=== PATIENT | male | born 1945 | race Asian ===

== ENCOUNTER 2016-06-07 16:35 | Inpatient (IN) | payer OTHER ==
--- NOTE | 2016-06-07 16:47 | PDOC ---
History of Present Illness - General History Source: Patient Exam Limitations: No Limitations - History of Present Illness Initial Comments: 06/07/16 16:56 The patient is a 70 year old male with a significant past medical history of hypertension, hyperlipidemia, CAD, type II diabetes, presenting to the Emergency Department with fever, chills, cough, and body aches for 4 days. He reports seeing his PCP on June 05, and was prescribed Biaxin. He admits that his fever, chills, and symptoms improved since starting the antibiotics but admits that he still has a cough and symptoms. He admits that his cough started producing phlegm as of yesterday. He denies pain with coughing. He denies having a pneumonia vaccination. The patient denies nausea, vomiting, and diarrhea. Patient denies chest pain, palpitations, or diaphoresis. Patient denies dizziness, or blurry vision. Patient denies recent travel. Patient denies sick contact. PCP: Dr. Susannah Pelayo <Katherine Young - Last Filed: 06/07/16 17:21> <Jeremy Rick - Last Filed: 06/07/16 17:49> - General Chief Complaint: Respiratory Stated Complaint: COLD,FEVER,SOB Time Seen by Provider: 06/07/16 16:38 Past History <Katherine Young - Last Filed: 06/07/16 17:21> - Past Medical History Cardiac Disorders: Yes (4 STENTS, QUAD BYPASS) Diabetes: Yes - Surgical History Cardiac Surgery: Yes (STENTS, QUAD BYPASS) - Psycho/Social/Smoking Cessation Hx Anxiety: No Suicidal Ideation: No Smoking History: Never smoked Substance Use Type: None <Jeremy Rick - Last Filed: 06/07/16 17:49> - Past Medical History Allergies/Adverse Reactions: Allergies Allergy/AdvReac Type Severity Reaction Status Date / Time No Known Allergies Allergy Verified 06/07/16 16:55 Home Medications: Ambulatory Orders Amlodipine Besylate [Norvasc -] 2.5 mg PO DAILY 06/07/16 Aspirin [ASA -] 81 mg PO DAILY 06/07/16 B Complex with Vitamin C [Super B with Vit C] 1 each PO BID 06/07/16 Cholecalciferol (Vitamin D3) [Vitamin D3 -] 1,000 unit PO DAILY 06/07/16 Glipizide Xl [Glucotrol Xl -] 10 mg PO BID 06/07/16 Glucosamine HCl/Chondr Leija A Na [Osteo Bi-Flex Caplet] 1 each PO BID 06/07/16 Losartan 50Mg/Hctz 12.5MG [Hyzaar -] 1 tab PO DAILY 06/07/16 Metoprolol Succinate [Toprol Xl -] 75 mg PO HS 06/07/16 Multivits,Ca,Min/Iron/FA/Lycop [Centrum Men's Tablet] 1 each PO DAILY 06/07/16 Omeprazole 20 mg PO DAILY 06/07/16 Pioglitazone HCl [Actos] 30 mg PO HS 06/07/16 Prasugrel HCl [Effient] 10 mg PO DAILY 06/07/16 Pravastatin Sodium [Pravachol (Nf)] 20 mg PO HS 06/07/16 Ranolazine [Ranexa] 1,000 mg PO BID 06/07/16 Sitagliptin Phos/Metformin HCl [Janumet 50-1,000 mg Tablet] 1 each PO BID Tadalafil [Cialis] 5 mg PO HS 06/07/16 Ubidecarenone [Co Q-10] 100 mg PO BID 06/07/16 Review of Systems - Review of Systems Able to Perform ROS?: Yes Comments:: 06/07/16 16:57 CONSTITUTIONAL: Present: + fever, + chills, + body aches Absent: diaphoresis, generalized weakness, malaise, loss of appetite HEENT: Absent: rhinorrhea, nasal congestion, throat pain, throat swelling, difficulty swallowing, mouth swelling, ear pain, eye pain, visual Changes CARDIOVASCULAR: Absent: chest pain, syncope, palpitations, irregular heart rate, lightheadedness , peripheral edema RESPIRATORY: Present: + productive cough Absent: shortness of breath, dyspnea with exertion, orthopnea, wheezing, stridor , hemoptysis GASTROINTESTINAL: Absent: abdominal pain, abdominal distension, nausea, vomiting, diarrhea, constipation, melena, hematochezia GENITOURINARY: Absent: dysuria, frequency, urgency, hesitancy, hematuria, flank pain, genital pain MUSCULOSKELETAL: Absent: myalgia, arthralgia, joint swelling SKIN: Absent: rash, itching, pallor HEMATOLOGIC/IMMUNOLOGIC: Absent: easy bleeding, easy bruising, lymphadenopathy, frequent infections ENDOCRINE: Absent: unexplained weight gain, unexplained weight loss, heat intolerance, cold intolerance NEUROLOGIC: Absent: headache, focal weakness or paresthesias, dizziness, unsteady gait, seizure, mental status changes, bladder or bowel incontinence PSYCHIATRIC: Absent: anxiety, depression, suicidal or homicidal ideation, hallucinations. <Katherine Young - Last Filed: 06/07/16 17:21> *Physical Exam - Vital Signs Last Vital Signs Temp Pulse Resp BP Pulse Ox 98.5 F 102 H 24 135/82 99 06/07/16 16:44 06/07/16 16:44 06/07/16 16:44 06/07/16 16:44 06/07/16 16:44 - Physical Exam Comments: 06/07/16 16:57 GENERAL: Well developed, well nourished. Awake and alert. In no acute distress. HEENT: Normocephalic, atraumatic. PERRLA, EOMI. No conjunctival pallor. Sclera are non- icteric. Moist mucous membranes. Oropharynx is clear. NECK: Supple. Full ROM. No JVD. Carotid pulses 2+ and symmetric, without bruits. No thyromegaly. No lymphadenopathy. CARDIOVASCULAR: Tacchycardic rate with regular rythm. No murmurs, rubs, or gallops. Distal pulses are 2+ and symmetric. PULMONARY: Mild end expiratory wheezes bilaterally. Crackles at right lower lobe, and left upper lobe. No rales or rhonchi. ABDOMINAL: Soft. Non-tender. Non-distended. No rebound or guarding. No organomegaly. Normoactive bowel sounds. MUSCULOSKELETAL Normal range of motion at all joints. No bony deformities or tenderness. No CVA tenderness. EXTREMITIES: No cyanosis. No clubbing. No edema. No calf tenderness. SKIN: Warm and dry. Normal capillary refill. No rashes. No jaundice. NEUROLOGICAL: Alert, awake, appropriate. Cranial nerves 2-12 intact. No deficits to light touch and temperature in face, upper extremities and lower extremities. No motor deficits in the in face, upper extremities and lower extremities. Normoreflexic in the upper and lower extremities. Normal speech. Toes are downgoing bilaterally. Gait is normal without ataxia. PSYCHIATRIC: Cooperative. Good eye contact. Appropriate mood and affect. <Katherine Young - Last Filed: 06/07/16 17:21> ED Treatment Course - LABORATORY CBC & Chemistry Diagram: 06/07/16 17:06 06/07/16 17:06 <Katherine Young - Last Filed: 06/07/16 17:21> - LABORATORY CBC & Chemistry Diagram: 06/07/16 17:06 06/07/16 17:06 <Jeremy Rick - Last Filed: 06/07/16 17:49> Medical Decision Making - Medical Decision Making 06/07/16 16:53 The patient is well-appearing and in no acute distress He has to SIRS criteria: Heart rate greater than 90, respiratory rate greater than 20 He has right lower lobe crackles and symptoms of pneumonia He meets diagnostic criteria for sepsis Will initiate sepsis order set 06/07/16 17:14 Chest x-ray emergency Department interpretation: Left upper lobe infiltrate 06/07/16 17:30 EKG emergency Department interpretation: Normal sinus rhythm at 91, left axis deviation, left anterior hemiblock, right bundle-branch block, prolonged QTc, inverted T waves in V1 through V3, no ST changes Given that he is taking a macrolide as an outpatient, and continuing to be symptomatic, coupled with his prolonged QTc, will treat his community-acquired pneumonia with ceftriaxone and doxycycline 06/07/16 17:47 Labs noted including: Hyponatremia Elevated BUN/creatinine creatinine Mildly elevated glucose Laboratory Tests 06/07/16 17:06 Sodium 126 L BUN 19 H D Creatinine 1.4 H D Random Glucose 260 H D AST 42 D ALT 31 D We do not have a baseline creatinine, and the patient does not have a history of chronic kidney disease. I suspect that the elevated creatinine represents acute kidney injury. Hyponatremia is likely hypovolemic hyponatremia However, given that he has pneumonia, SIADH is also a possibility I added urinary antigens for Legionella, given the hyponatremia Of note he does not have diarrhea nor does he have a transaminitis Clinical impression: Community-acquired pneumonia Sepsis Hyponatremia Acute Kidney Injury Slightly prolonged QTC Case discussed in detail with admitting provider including history, physical exam and ancillary studies. Admitting physician has assumed care for the patient, will follow all pending diagnostics and will complete the evaluation and treatment. A portion of this note was documented by scribe services under my direction. I have reviewed the details of the note, within reason, and agree with the documentation with the following case summary and management plan written by me. 06/07/16 17:49 <Jeremy Rick - Last Filed: 06/07/16 17:49> *DC/Admit/Observation/Transfer - Attestations Scribe Attestion: 06/07/16 16:59 Documentation prepared by Katherine Young, acting as territory sales manager medical for Jeremy Rick MD. <Katherine Young - Last Filed: 06/07/16 17:21> - Discharge Dispostion Admit: Yes <Jeremy Rick - Last Filed: 06/07/16 17:49> Diagnosis at time of Disposition: Community acquired pneumonia, Sepsis - Discharge Dispostion Condition at time of disposition: Stable - Referrals Referrals: Milana Pelayo [Primary Care Provider] -
[2016-06-07] MEDS ORDERED: SODIUM CHLORIDE 1,000 ML IV STA (16:54)
[2016-06-07] MEDS ORDERED: AZITHROMYCIN IVPB 500 MG in DEXTROSE 5%-WATER - 250 ML IVPB ONE (16:55)
[2016-06-07] MEDS ORDERED: CEFTRIAXONE 1 GM in DEXTROSE 5%-WATER - 50 ML IVPB ONE (16:55)
[2016-06-07] MEDS ORDERED: ALBUTEROL SO4 2.5/IPRATROPIUM 0.5 INH SOL 3 ML VIAL.NEB. NEB ONE (16:55)
[2016-06-07 17:22] LABS: BASOPHIL 0.4 % (0-2.0); EOSINOPHIL 1.9 % (0-4.5); MCHC 35.3 g/dl (32.0-35.9); MEAN CELL VOLUME 90.5 fl (80-96); MEAN PLT VOLUME 7.9 fl (7.5-11.1); NEUTROPHILS 78.1 % (42.8-82.8); PLATELET COUNT 328 K/MM3 (134-434); RDW 11.8 % (11.9-15.9); WHITE BLOOD COUNT 8.5 K/mm3 (4.0-10.0)
[2016-06-07 17:32] LABS: ACTIVATED PTT 28.4 SECONDS (24.0-38.9)
[2016-06-07] MEDS ORDERED: DOXYCYCLINE INJECTION 100 MG in DEXTROSE 5%-WATER - 100 ML IVPB ONE (17:32)
[2016-06-07 17:33] LABS: ALBUMIN 3.1 g/dl (3.5-5.0); BILIRUBIN,TOTAL 0.8 mg/dl (0.2-1.0); CALCIUM 8.3 mg/dl (8.4-10.2); CREATININE 1.4 mg/dl (0.6-1.3); TOT PROT 7.1 g/dl (6.4-8.3)
[2016-06-07 17:36] LABS: INR 1.23 (0.82-1.09); PROTHROMBIN TIME (PATIENT) 13.7 SEC (10.2-13.0)
[2016-06-07 17:52] LABS: CPK(DFH) 135 IU/L (38-174)
[2016-06-07] MEDS ORDERED: DOXYCYCLINE HYCLATE 100 MG VIAL ONE (18:04)
[2016-06-07 18:11] LABS: TROPONIN I (DFP) < 0.03 ng/ml (0.03-0.50)
[2016-06-07 19:26] VITALS: BMI 28.0
--- NOTE | 2016-06-07 19:28 | HP ---
CHIEF COMPLAINT: Fever, Chills, Generalized Bodyaches PCP: Dr. Susannah Pelayo HISTORY OF PRESENT ILLNESS: This is a 70 y/o man with a past medical history of Hypertension, HLD, CAD ( Stents x4), Quad Bypass. Who presents to the emergency department with fever, chills and generalized bodyaches, dry cough x 4 days. Patient reports subjective fevers 100-101 at home. Patient was seen by his PCP placed on Biaxin . Patient reports feeling better on Thursday with decreased chills. Patient reports this morning having a productive cough with blood tinged phlegm. Patient reports having difficulty speaking in full sentences without becoming SOB. Patient denies recent travel or sick contacts. Patient denies dizziness, CP, AP, N/V/D, constipation. ER course was notable for: (1) Na 126 (2) Chest Xray- image consolidation to RML, LLL (3) Lactic Acid 2.4 Recent Travel: None PAST MEDICAL HISTORY: See HPI PAST SURGICAL HISTORY: See HPI Social History: Smoking: Former Alcohol: None Drugs: None Lives with spouse- Retired Family History: Mother: HTN, DM, CAD, Stroke () Father: (car accident) Allergies No Known Allergies Allergy (Verified 06/07/16 16:55) HOME MEDICATIONS: Home Medications Medication Instructions Recorded Amlodipine Besylate [Norvasc -] 2.5 mg PO DAILY 06/07/16 Aspirin [ASA -] 81 mg PO DAILY 06/07/16 B Complex with Vitamin C [Super B 1 each PO BID 06/07/16 with Vit C] Cholecalciferol (Vitamin D3) 1,000 unit PO DAILY 06/07/16 [Vitamin D3 -] Glipizide Xl [Glucotrol Xl -] 10 mg PO BID 06/07/16 Glucosamine HCl/Chondr Leija A Na 1 each PO BID 06/07/16 [Osteo Bi-Flex Caplet] Losartan 50Mg/Hctz 12.5MG [Hyzaar 1 tab PO DAILY 06/07/16 -] Metoprolol Succinate [Toprol Xl -] 75 mg PO HS 06/07/16 Multivits,Ca,Min/Iron/FA/Lycop 1 each PO DAILY 06/07/16 [Centrum Men's Tablet] Omeprazole 20 mg PO DAILY 06/07/16 Pioglitazone HCl [Actos] 30 mg PO HS 06/07/16 Prasugrel HCl [Effient] 10 mg PO DAILY 06/07/16 Pravastatin Sodium [Pravachol (Nf)] 20 mg PO HS 06/07/16 Ranolazine [Ranexa] 1,000 mg PO BID 06/07/16 Sitagliptin Phos/Metformin HCl 1 each PO BID 06/07/16 [Janumet 50-1,000 mg Tablet] Tadalafil [Cialis] 5 mg PO HS 06/07/16 Ubidecarenone [Co Q-10] 100 mg PO BID 06/07/16 REVIEW OF SYSTEMS CONSTITUTIONAL: fever, chills Absent: diaphoresis, generalized weakness, malaise, loss of appetite, weight change HEENT: Absent: rhinorrhea, nasal congestion, throat pain, throat swelling, difficulty swallowing, mouth swelling, ear pain, eye pain, visual changes CARDIOVASCULAR: Absent: chest pain, syncope, palpitations, irregular heart rate, lightheadedness , peripheral edema RESPIRATORY: cough, shortness of breath Absent: dyspnea with exertion, orthopnea, wheezing, stridor, hemoptysis GASTROINTESTINAL: Absent: abdominal pain, abdominal distension, nausea, vomiting, diarrhea, constipation, melena, hematochezia GENITOURINARY: Absent: dysuria, frequency, urgency, hesitancy, hematuria, flank pain, genital pain MUSCULOSKELETAL: Absent: myalgia, arthralgia, joint swelling, back pain, neck pain SKIN: Absent: rash, itching, pallor HEMATOLOGIC/IMMUNOLOGIC: Absent: easy bleeding, easy bruising, lymphadenopathy, frequent infections ENDOCRINE: Absent: unexplained weight gain, unexplained weight loss, heat intolerance, cold intolerance NEUROLOGIC: Absent: headache, focal weakness or paresthesias, dizziness, unsteady gait, seizure, mental status changes, bladder or bowel incontinence PSYCHIATRIC: Absent: anxiety, depression, suicidal or homicidal ideation, hallucinations. PHYSICAL EXAMINATION Vital Signs - 24 hr 06/07/16 06/07/16 18:56 19:26 Temperature 99 F Pulse Rate 89 Respiratory 18 Rate Blood Pressure 135/92 O2 Sat by Pulse 98 Oximetry (%) GENERAL: Awake, alert, and fully oriented, in no acute distress. HEAD: Normal with no signs of trauma. EYES: Pupils equal, round and reactive to light, extraocular movements intact, sclera anicteric, conjunctiva clear. No lid lag. EARS, NOSE, THROAT: Ears normal, nares patent, oropharynx clear without exudates. Dry mucous membranes. NECK: Normal range of motion, supple without lymphadenopathy, JVD, or masses. LUNGS: Breath sounds equal, clear to auscultation bilaterally. No wheezes, and no crackles. No accessory muscle use. HEART: Regular rate and rhythm, normal S1 and S2 without murmur, rub or gallop. ABDOMEN: Soft, nontender, not distended, normoactive bowel sounds, no guarding, no rebound, no masses. No hepatomegaly or splenomegaly. MUSCULOSKELETAL: Normal range of motion at all joints. No bony deformities or tenderness. No CVA tenderness. UPPER EXTREMITIES: 2+ pulses, warm, well-perfused. No cyanosis. No clubbing. Cap refill <2 seconds. No peripheral edema. LOWER EXTREMITIES: 2+ pulses, warm, well-perfused. No calf tenderness. No peripheral edema. NEUROLOGICAL: Cranial nerves II-XII intact. Normal speech. Gait not observed. PSYCHIATRIC: Cooperative. Good eye contact. Appropriate mood and affect. SKIN: Warm, dry, normal turgor, no rashes or lesions noted. Laboratory Results - last 24 hr 06/07/16 06/07/16 06/07/16 17:06 17:06 17:06 WBC 8.5 D RBC 3.87 L Hgb 12.4 Hct 35.0 L MCV 90.5 MCHC 35.3 RDW 11.8 L Plt Count 328 D MPV 7.9 Neutrophils % 78.1 Lymphocytes % 8.7 D Monocytes % 10.9 H Eosinophils % 1.9 Basophils % 0.4 INR 1.23 H PTT (Actin FS) 28.4 Sodium 126 L Potassium 3.7 Chloride 93 L Carbon Dioxide 22 Anion Gap 11 BUN 19 H D Creatinine 1.4 H D Creat Clearance w eGFR 49.82 Random Glucose 260 H D Lactic Acid Calcium 8.3 L Total Bilirubin 0.8 D AST 42 D ALT 31 D Alkaline Phosphatase 79 D Creatine Kinase Troponin I Total Protein 7.1 Albumin 3.1 L Urine Color Urine Appearance Urine pH Ur Specific [place] Urine Protein Urine Glucose (UA) Urine Ketones Urine Blood Urine Nitrite Urine Bilirubin Urine Urobilinogen Ur Leukocyte Esterase 06/07/16 06/07/16 06/07/16 17:06 17:30 19:44 WBC RBC Hgb Hct MCV MCHC RDW Plt Count MPV Neutrophils % Lymphocytes % Monocytes % Eosinophils % Basophils % INR PTT (Actin FS) Sodium Potassium Chloride Carbon Dioxide Anion Gap BUN Creatinine Creat Clearance w eGFR Random Glucose Lactic Acid 2.422 H* 2.895 H* Calcium Total Bilirubin AST ALT Alkaline Phosphatase Creatine Kinase 135 Troponin I < 0.03 L Total Protein Albumin Urine Color Urine Appearance Urine pH Ur Specific [place] Urine Protein Urine Glucose (UA) Urine Ketones Urine Blood Urine Nitrite Urine Bilirubin Urine Urobilinogen Ur Leukocyte Esterase 06/07/16 06/08/16 20:52 00:30 WBC RBC Hgb Hct MCV MCHC RDW Plt Count MPV Neutrophils % Lymphocytes % Monocytes % Eosinophils % Basophils % INR PTT (Actin FS) Sodium Potassium Chloride Carbon Dioxide Anion Gap BUN Creatinine Creat Clearance w eGFR Random Glucose Lactic Acid 1.074 Calcium Total Bilirubin AST ALT Alkaline Phosphatase Creatine Kinase Troponin I Total Protein Albumin Urine Color Yellow Urine Appearance Clear Urine pH 5.5 Ur Specific [place] 1.010 Urine Protein Negative Urine Glucose (UA) Negative Urine Ketones Negative Urine Blood Trace-intact Urine Nitrite Negative Urine Bilirubin Negative Urine Urobilinogen 1.0 e.u/dl Ur Leukocyte Esterase Negative ASSESSMENT/PLAN: This is a 70 y/o man with a PMHx of: HTN, HLD, DM, CAD( Stents x4), Quad Bypass. Presents to the ED with fever, chills, generalized body-aches. Admitted for Community Acquired Pneumonia, Sepsis, Hyponatremia for further evaluation of their emergent condition. Plan: 1. Community acquired pneumonia: - Failed Outpatient Therapy - CURB65 Score 1 - Blood Cultures-pending - Urine Legionella- pending - No leukocytosis, afebrile likely secondary to recent ABX use - Azithromycin, Ceftriaxone, Doxycycline given in ED - Will continue Doxycycline for broad spectrum coverage - Monitor CBC - O2 - Albuterol neb prn - Consider ID Consult if condition worsens 2. Sepsis: - Likely secondary to PNA - Lactic Acid 2.4~2.8 - NS bolus given in ED, NS bolus given x1 - Repeat Lactic Acid post fluid bolus - Hold Metformin - Continue gentle IVF concern for fluid overload 3. Lactic acidemia: - LA 2.4~2.8 - NS bolus given in ED - NS bolus x1 - Repeat LA-pending - Hold Metformin 4. Hyponatremia: - Likely hypovolemic hyponatremia - NS bolus given in ED - NA corrected 129-130 - Continue gentle IVF - Monitor BMP - Urine, Serum Osmality-pending 5. Diabetes mellitus: - Not controlled, likely secondary to infection - BGMs - ISS - Hold Metformin and Janumet secondary to LA 6. Hypertension: - Monitor BP - Continue home meds - Monitor renal function 7. Hyperlipidemia: - Continue home med 8. DVT Prophylaxis: - OOB - SCDs 9. FEN: - NS@50ml/hr - Repleted Na - Low Na, 1800 ADA Code Status: Full Code Problem List - Problem (1) Community acquired pneumonia Assessment/Plan: - Failed Outpatient Therapy - CURB65 Score 1 - Blood Cultures-pending - Urine Legionella- pending - No leukocytosis, afebrile likely secondary to recent ABX use - Azithromycin, Ceftriaxone, Doxycycline given in ED - Will continue Doxycycline for broad spectrum coverage - Monitor CBC - O2 - Albuterol neb prn - Consider ID Consult if condition worsens Code(s): J18.9 - PNEUMONIA, UNSPECIFIED ORGANISM (2) Sepsis Assessment/Plan: - Likely secondary to PNA - Lactic Acid 2.4~2.8 - NS bolus given in ED, NS bolus given x1 - Repeat Lactic Acid post fluid bolus - Hold Metformin - Continue gentle IVF concern for fluid overload Code(s): A41.9 - SEPSIS, UNSPECIFIED ORGANISM (3) Lactic acidemia Assessment/Plan: - LA 2.4~2.8 - NS bolus given in ED - NS bolus x1 - Repeat LA-pending - Hold Metformin Code(s): E87.2 - ACIDOSIS (4) Hyponatremia Assessment/Plan: - Likely hypovolemic hyponatremia - NS bolus given in ED - NA corrected 129-130 - Continue gentle IVF - Monitor BMP - Urine, Serum Osmality-pending Code(s): E87.1 - HYPO-OSMOLALITY AND HYPONATREMIA (5) Diabetes mellitus Assessment/Plan: - Not controlled, likely secondary to infection - BGMs - ISS - Hold Metformin and Janumet secondary to LA Code(s): E11.9 - TYPE 2 DIABETES MELLITUS WITHOUT COMPLICATIONS (6) HTN (hypertension) Assessment/Plan: - Monitor BP - Continue home meds - Monitor renal function Code(s): I10 - ESSENTIAL (PRIMARY) HYPERTENSION (7) HLD (hyperlipidemia) Assessment/Plan: - Continue home med Code(s): E78.5 - HYPERLIPIDEMIA, UNSPECIFIED (8) DVT prophylaxis Assessment/Plan: - OOB - SCDs Code(s): [id number] - Visit type - Emergency Visit Emergency Visit: Yes ED Registration Date: 06/07/16 Care time: The patient presented to the Emergency Department on the above date and was hospitalized for further evaluation of their emergent condition. - New Patient This patient is new to me today: Yes Date on this admission: 06/07/16 - Critical Care Critical Care patient: No
[2016-06-07 21:02] LABS: PH,URINE 5.5 (4.5-8); URINE APPEARANCE Clear; URINE BILIRUBIN Negative (NEGATIVE); URINE BLOOD Trace-intact (NEGATIVE); URINE GLUCOSE (UA) Negative (NEGATIVE); URINE KETONE Negative (NEGATIVE); URINE LEUK ESTERASE Negative (NEGATIVE); URINE NITRITE Negative (NEGATIVE); URINE PROTEIN Negative (NEGATIVE); URINE UROBILINOGEN 1.0 E.U/dl (0.2-1.0)
[2016-06-07 21:05] LABS: URINE COLOR YELLOW
[2016-06-07] MEDS ORDERED: SODIUM CHLORIDE 500 ML IV STA (22:05)
[2016-06-08] MEDS ORDERED: ALBUTEROL SO4 0.083% IH SOL 2.5 MG/3 ML VIAL.NEB. NEB PRN (00:55)
[2016-06-08] MEDS: SODIUM CHLORIDE 1,000 ML IV SCH (06:39)
--- NOTE | 2016-06-08 08:21 | PN ---
[id number] today." OBJECTIVE: Hospital day #2 for this 70 year old male with a history of HTN, HLD , and CAD s/p CABG admitted with community-acquired, failed outpatient Biaxin. Lactic acid cleared with IVF administration. Hyponatremia improved. Vital Signs Period Temp Pulse Resp BP Sys/Alcaraz Pulse Ox Last 24 Hr 98.2 F-99 F 89-95 17-19 122-146/57-92 97-98 GENERAL: The patient is awake, alert, and fully oriented, in no acute distress. HEAD: Normal with no signs of trauma. EYES: PERRL, extraocular movements intact, sclera anicteric, conjunctiva clear. No ptosis. ENT: Ears normal, nares patent, oropharynx clear without exudates, moist mucous membranes. NECK: Trachea midline, full range of motion, supple. LUNGS: Breath sounds equal, clear to auscultation bilaterally, no wheezes, no crackles, no accessory muscle use. Mild tachypnea. HEART: Regular rate and rhythm, S1, S2 without murmur, rub or gallop. ABDOMEN: Soft, nontender, nondistended, normoactive bowel sounds, no guarding, no rebound, no hepatosplenomegaly, no masses. EXTREMITIES: 2+ pulses, warm, well-perfused, no edema. NEUROLOGICAL: Cranial nerves II through XII grossly intact. Normal speech, gait not observed. PSYCH: Normal mood, normal affect. SKIN: Warm, moist. Laboratory Results - last 24 hr 06/07/16 06/07/16 06/08/16 19:44 20:52 00:30 Lactic Acid 2.895 H* 1.074 Urine Color Yellow Urine Appearance Clear Urine pH 5.5 Ur Specific [place] 1.010 Urine Protein Negative Urine Glucose (UA) Negative Urine Ketones Negative Urine Blood Trace-intact Urine Nitrite Negative Urine Bilirubin Negative Urine Urobilinogen 1.0 e.u/dl Ur Leukocyte Esterase Negative Active Medications Generic Name Dose Route Start Last Admin Trade Name Freq PRN Reason Stop Dose Admin Acetaminophen 650 mg 06/07/16 23:22 Tylenol - PO Q6H PRN FEVER OR PAIN Albuterol Sulfate 1 amp 06/08/16 00:55 Ventolin 0.083% Nebulizer Soln - NEB Q6H PRN SHORT OF BREATH/WHEEZING Amlodipine Besylate 2.5 mg 06/08/16 10:00 Norvasc - PO DAILY MARYANN Aspirin 81 mg 06/08/16 10:00 Asa - PO DAILY MARYANN Cholecalciferol 1,000 unit 06/08/16 10:00 Vitamin D3 - PO BID MARYANN HCTZ/Losartan Potassium 1 tab 06/08/16 10:00 Hyzaar - PO DAILY MARYANN Doxycycline Hyclate 100 mg/ 100 mls @ 100 mls/hr 06/08/16 10:00 Dextrose IVPB BID MARYANN Sodium Chloride 1,000 mls @ 50 mls/hr 06/08/16 06:30 06/08/16 06:39 Normal Saline - IV 50 mls/hr ASDIR MARYANN Administration Metoprolol Succinate 75 mg 06/08/16 22:00 Toprol Xl - PO HS MARYANN Non-Formulary Medication 1 each 06/08/16 10:00 B Complex With Vitamin C [Super B With Vit C] PO BID MARYANN Non-Formulary Medication 20 mg 06/08/16 10:00 Omeprazole PO DAILY MARYANN Prasugrel 10 mg 06/08/16 10:00 Effient - PO DAILY [facility] ASSESSMENT/PLAN: 70 year old male admitted with DAWSON, failed outpatient therapy. 1. Community acquired pneumonia -Started on doxycycline and improving; will continue this -Patient reports one episode of hemoptysis prior to admission and has DAWSON consolidation; TB is a consideration. Last visit to [facility] 3.5yrs ago. Denies nightsweats/weight loss. Received bcg vaccine as a child. Will obtain CT Chest to better characterize consolidation and will send Quantiferon Gold. Will consult ID for further recommendations. 2. DM -Hold oral hypoglycemics while inpatient -ISS -FSACHS -Diabetic diet 3. Hyponatremia -Likely secondary to fever/rigors at home -Improved with IVF administration -Hold HCTZ 4. HTN -Continue Losartan, Toprol -Hold HCTZ for now 5. Dyslipidemia -Continue Lipitor 6. CAD -Continue Ranexa, Effient DISPO: Requires continued inpatient care for IV antibiotics. Code Status: Full Code Visit type - Emergency Visit Emergency Visit: Yes ED Registration Date: 06/07/16 Care time: The patient presented to the Emergency Department on the above date and was hospitalized for further evaluation of their emergent condition. - New Patient This patient is new to me today: Yes Date on this admission: 06/07/16 - Critical Care Critical Care patient: No
[2016-06-08 09:34] LABS: BASOPHIL 0.2 % (0-2.0); EOSINOPHIL 3.3 % (0-4.5); MCH 30.9 pg (25.7-33.7); MCHC 33.5 g/dl (32.0-35.9); MEAN CELL VOLUME 92.2 fl (80-96); MEAN PLT VOLUME 8.1 fl (7.5-11.1); NEUTROPHILS 78.9 % (42.8-82.8); PLATELET COUNT 396 K/MM3 (134-434); RDW 12.3 % (11.9-15.9); WHITE BLOOD COUNT 7.3 K/mm3 (4.0-10.0)
[2016-06-08 09:42] LABS: CALCIUM 8.5 mg/dl (8.4-10.2)
[2016-06-08] MEDS ORDERED: LOSARTAN 50MG/HCTZ 12.5MG 1 TAB (FP) PO SCH (10:00)
[2016-06-08] MEDS: RANOLAZINE E.R. 500 MG TABLET (FP) PO SCH ×2 (10:26→22:12)
[2016-06-08] MEDS: ASPIRIN 81 MG CHEWABLE TABLETS PO SCH (10:26)
[2016-06-08] MEDS: CHOLECALCIFEROL (VITAMIN D3) 1,000 UNIT TABLET (FP) PO SCH ×2 (10:27→22:12)
[2016-06-08] MEDS: PANTOPRAZOLE 20 MG TABLET (FP) PO SCH (10:27)
[2016-06-08] MEDS: amLODIPine BESYLATE 2.5 MG TABLET (FP) PO SCH (10:27)
[2016-06-08] MEDS ORDERED: METOPROLOL SUCCINATE 25 MG TAB.SR.24H (FP) ONE (10:31)
[2016-06-08] MEDS: ACETAMINOPHEN 325 MG TABLET (FP) PO PRN (10:32)
[2016-06-08] MEDS ORDERED: METOPROLOL SUCCINATE 50 MG TAB.SR.24H (FP) ONE (10:32)
[2016-06-08] MEDS: DOXYCYCLINE INJECTION 100 MG in DEXTROSE 5%-WATER - 100 ML IVPB SCH ×2 (11:52→22:11)
[2016-06-08] MEDS: PRASUGREL HCL 10 MG TAB PO SCH (11:53)
[2016-06-08] MEDS: INSULIN SLIDING SCALE (NOVOLOG) 1 VIAL SQ SCH ×3 (15:17→22:12)
[2016-06-08] MEDS ORDERED: PT OWN MED DRAWER 7, Y5N ONE (21:29)
[2016-06-08] MEDS ORDERED: REFRIGERATED ANITBIOTICS ONE (21:29)
[2016-06-08] MEDS ORDERED: METOPROLOL SUCCINATE 50 MG TAB.SR.24H (FP) PO SCH (22:00)
[2016-06-08] MEDS: ATORVASTATIN CA 10 MG TABLET (FP) PO SCH (22:12)
--- NOTE | 2016-06-08 22:21 | EKG ---
Test Reason : Blood Pressure : / mmHG Vent. Rate : 091 BPM Atrial Rate : 091 BPM P-R Int : 172 ms QRS Dur : 146 ms QT Int : 414 ms P-R-T Axes : 029 -31 019 degrees QTc Int : 509 ms NORMAL SINUS RHYTHM LEFT AXIS DEVIATION RIGHT BUNDLE BRANCH BLOCK ABNORMAL ECG NO PREVIOUS ECGS AVAILABLE Confirmed by RAZA TAM, LAKISHA ([id number]) on 06/08/2016 10:20:54 PM Referred By: LESLI WASSERMAN Confirmed By:LAKISHA PERSON MD
[2016-06-09] MEDS: INSULIN SLIDING SCALE (NOVOLOG) 1 VIAL SQ SCH ×4 (06:25→22:54)
--- NOTE | 2016-06-09 08:20 | PN ---
Physical Exam: SUBJECTIVE: Patient seen and examined, reports ongoing cough with intermittent episodes of shortness of breath. OBJECTIVE: patient is a 70 year old male with a history of HTN, HLD, and CAD s/ p CABG. patient was admitted from the emergency department for community acquired pneumonia after failing outpatient therapy. Vital Signs Period Temp Pulse Resp BP Sys/Alcaraz Pulse Ox Last 24 Hr 98.0 F-99.3 F 90-92 18-19 112-147/61-71 97-100 GENERAL: The patient is awake, alert, and fully oriented, in no acute distress. HEAD: Normal with no signs of trauma. EYES: PERRL, extraocular movements intact, sclera anicteric, conjunctiva clear. No ptosis. ENT: Ears normal, nares patent, oropharynx clear without exudates, moist mucous membranes. NECK: Trachea midline, full range of motion, supple. LUNGS: Breath sounds equal, crackles noted to the left upper lobe, with a mild inspiratory wheeze, clear to right apex and base, RR 22, no accessory muscle use. HEART: Regular rate and rhythm, S1, S2, 2/6 systolic murmur, rub or gallop. ABDOMEN: Soft, nontender, nondistended, normoactive bowel sounds, no guarding, no rebound, no hepatosplenomegaly, no masses. EXTREMITIES: 2+ pulses, warm, well-perfused, no edema. NEUROLOGICAL: Cranial nerves II through XII grossly intact. Normal speech, gait not observed. PSYCH: Normal mood, normal affect. SKIN: Warm, dry, normal turgor, no rashes or lesions noted Laboratory Results - last 24 hr 06/08/16 06/08/16 06/08/16 07:00 07:00 07:00 WBC 7.3 RBC 3.92 L Hgb 12.1 Hct 36.1 MCV 92.2 MCHC 33.5 RDW 12.3 Plt Count 396 D MPV 8.1 Neutrophils % 78.9 Lymphocytes % 10.1 Monocytes % 7.5 Eosinophils % 3.3 Basophils % 0.2 Sodium 132 L Potassium 3.5 Chloride 98 Carbon Dioxide 25 Anion Gap 9 BUN 10 D Creatinine 1.0 D POC Glucometer Random Glucose 127 H D Serum Osmolality 276 L Calcium 8.5 06/08/16 06/08/16 06/09/16 15:07 22:18 06:21 WBC RBC Hgb Hct MCV MCHC RDW Plt Count MPV Neutrophils % Lymphocytes % Monocytes % Eosinophils % Basophils % Sodium Potassium Chloride Carbon Dioxide Anion Gap BUN Creatinine POC Glucometer 211 240 172 Random Glucose Serum Osmolality Calcium Active Medications Generic Name Dose Route Start Last Admin Trade Name Freq PRN Reason Stop Dose Admin Acetaminophen 650 mg 06/07/16 23:22 06/08/16 10:32 Tylenol - PO 650 mg Q6H PRN Administration FEVER OR PAIN Albuterol Sulfate 1 amp 06/08/16 00:55 06/08/16 10:47 Ventolin 0.083% Nebulizer Soln - NEB 1 amp Q6H PRN Administration SHORT OF BREATH/WHEEZING Amlodipine Besylate 2.5 mg 06/08/16 10:00 06/08/16 10:27 Norvasc - PO 2.5 mg DAILY MARYANN Administration Aspirin 81 mg 06/08/16 10:00 06/08/16 10:26 Asa - PO 81 mg DAILY MARYANN Administration Atorvastatin Calcium 10 mg 06/08/16 22:00 06/08/16 22:12 Lipitor - PO 10 mg HS MARYANN Administration Cholecalciferol 1,000 unit 06/08/16 10:00 06/08/16 22:12 Vitamin D3 - PO 1,000 unit BID MARYANN Administration Doxycycline Hyclate 100 mg/ 100 mls @ 100 mls/hr 06/08/16 10:00 06/08/16 22:11 Dextrose IVPB 100 mls/hr BID MARYANN Administration Sodium Chloride 1,000 mls @ 50 mls/hr 06/08/16 06:30 06/08/16 06:39 Normal Saline - IV 50 mls/hr ASDIR MARYANN Administration Insulin Aspart 1 vial 06/08/16 11:00 06/09/16 06:25 Novolog Vial Sliding Scale - SQ 2 unit ACHS MARYANN Administration Protocol Losartan Potassium 50 mg 06/09/16 10:00 Cozaar - PO DAILY MARYANN Metoprolol Succinate 75 mg 06/09/16 10:00 Toprol Xl - PO DAILY MARYANN Non-Formulary Medication 1 each 06/08/16 10:00 B Complex With Vitamin C [Super B With Vit C] PO BID MARYANN Pantoprazole Sodium 20 mg 06/08/16 10:00 06/08/16 10:27 Protonix - PO 20 mg DAILY MARYANN Administration Prasugrel 10 mg 06/08/16 10:00 06/08/16 11:53 Effient - PO 10 mg DAILY MARYANN Administration Ranolazine 1,000 mg 06/08/16 10:00 06/08/16 22:12 Ranexa - PO 1,000 mg BID MARYANN Administration Microbiology 06/07/16 20:52 Urine - Urine Clean Catch Urine Culture - Final NO GROWTH OBTAINED 06/07/16 17:06 Blood - Peripheral Venous Blood Culture - Preliminary NO GROWTH OBTAINED AFTER 24 HOURS, INCUBATION TO CONTINUE FOR 4 DAYS. 06/07/16 17:06 Blood - Peripheral Venous Blood Culture - Preliminary NO GROWTH OBTAINED AFTER 24 HOURS, INCUBATION TO CONTINUE FOR 4 DAYS. 06/07/16 20:52 Urine For Antigen Detection Streptococcus pneumoniae Antigen (M - Final 06/07/16 17:40 Nasopharyngeal Swab Influenza Types A,B Antigen (LAINA) - Final , negative ASSESSMENT/PLAN: 1. pulm Community acquired pneumonia - doxycline (06/07-06/08) start zithromax and rocephin as per ID (Jeremy) - pending CT scan of chest, pt reports one episode of hemoptysis prior to admission, last visit [facility] 3.5 years ago, left upper lobe infiltrate noted strong suspicion for tuberculosis pending quanterferion gold, AFB sent. -Patient reports one episode of hemoptysis prior to admission and has DAWSON consolidation; TB is a consideration. Last visit to [facility] 3.5yrs ago, pending quanterferon gold, panding afb, appreciate ID input (Jeremy). 2) endo niddm - continue to hold oral hypoglycemics while inpatient -ISS -FSACHS 3) card htn -Continue Losartan, Toprol, hold hctz due to hyponatremia cad -Continue Ranexa, Effient hyperlipidemia -Continue Lipitor f/e/n hyponatremia - Basically secondary to dehydration serum sodium trending upward with gentle IV fluids - Repeat BMP in a.m. - regular diet DISPO: Requires continued inpatient care for IV antibiotics, transfer [facility] for negative pressure hospital room. Code Status: Full Code Visit type - Emergency Visit Emergency Visit: Yes ED Registration Date: 06/07/16 Care time: The patient presented to the Emergency Department on the above date and was hospitalized for further evaluation of their emergent condition. - New Patient This patient is new to me today: Yes Date on this admission: 06/09/16 - Critical Care Critical Care patient: No - Discharge Referral Referred to [facility] No
[2016-06-09 08:46] LABS: BASOPHIL 0.7 % (0-2.0); EOSINOPHIL 3.5 % (0-4.5); MCH 30.8 pg (25.7-33.7); MCHC 33.4 g/dl (32.0-35.9); MEAN CELL VOLUME 92.3 fl (80-96); MEAN PLT VOLUME 7.8 fl (7.5-11.1); NEUTROPHILS 73.6 % (42.8-82.8); PLATELET COUNT 413 K/MM3 (134-434); RDW 11.7 % (11.9-15.9); WHITE BLOOD COUNT 6.1 K/mm3 (4.0-10.0)
[2016-06-09] MEDS: ALBUTEROL SO4 2.5/IPRATROPIUM 0.5 INH SOL 3 ML VIAL.NEB. NEB SCH ×4 (08:58→23:25)
[2016-06-09 09:04] LABS: INR 1.21 (0.82-1.09); PROTHROMBIN TIME (PATIENT) 13.5 SEC (10.2-13.0)
[2016-06-09 09:10] LABS: ALK PHOS 77 U/L (32-92); ANION GAP 8 (8-16); BILIRUBIN,TOTAL 0.8 mg/dl (0.2-1.0); CALCIUM 8.8 mg/dl (8.4-10.2); CO2 27 mmol/L (22-28); CREATININE 0.8 mg/dl (0.6-1.3); GLUCOSE,RANDOM 213 mg/dl (74-106); SGOT/AST 29 U/L (10-42); SGPT/ALT 39 U/L (10-40)
--- NOTE | 2016-06-09 09:40 | PN ---
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 adrenal involvement) AFB isolation Sputum AFB Quantiferon Sputum C/s, legionella/ pneumococcal ag Empiric ceftriaxone/ zithromax
[2016-06-09] MEDS ORDERED: METOPROLOL SUCCINATE 50 MG TAB.SR.24H (FP) PO SCH (10:00)
[2016-06-09] MEDS: AZITHROMYCIN IVPB 250 ML IVPB SCH (10:17)
[2016-06-09] MEDS: CEFTRIAXONE 100 ML IVPB SCH (10:17)
[2016-06-09] MEDS: ASPIRIN 81 MG CHEWABLE TABLETS PO SCH (10:18)
[2016-06-09] MEDS: LOSARTAN POTASSIUM 50 MG TABLET (FP) PO SCH (10:18)
[2016-06-09] MEDS: CHOLECALCIFEROL (VITAMIN D3) 1,000 UNIT TABLET (FP) PO SCH ×2 (10:18→22:54)
[2016-06-09] MEDS: amLODIPine BESYLATE 2.5 MG TABLET (FP) PO SCH (10:18)
[2016-06-09] MEDS: RANOLAZINE E.R. 500 MG TABLET (FP) PO SCH ×2 (10:18→22:54)
[2016-06-09] MEDS: PANTOPRAZOLE 20 MG TABLET (FP) PO SCH (10:18)
[2016-06-09] MEDS: SODIUM CHLORIDE 1,000 ML IV SCH ×2 (10:19→16:52)
[2016-06-09] MEDS ORDERED: INSULIN (NOVOLOG) ASPART 100 UNITS/ML 10ML VIAL ONE (12:10)
[2016-06-09] MEDS: PRASUGREL HCL 10 MG TAB PO SCH (13:07)
--- NOTE | 2016-06-09 15:45 | PN ---
Teaching Attending Note Name of Resident: Stefany Walker ATTENDING PHYSICIAN STATEMENT I saw and evaluated the patient. I reviewed the resident's note and discussed the case with the resident. I agree with the resident's findings and plan as documented. SUBJECTIVE: In brief. 70 M, Hypertension, HLD, CAD (Stents x4), and CABG x 4. Cough, SOB , fever, chills and generalized bodyaches since last Thursday. Does report thick mucous production that was blood streaked. No previous TB exposure or contact. CT chest: DAWSON nodular infiltrates / no cavitary lesions / mildly enlarged mediastinal LN OBJECTIVE: Intake & Output 06/06/16 06/07/16 06/08/16 06/09/16 23:59 23:59 23:59 23:59 Intake Total 800 825 Output Total 300 350 Balance -300 450 825 Weight 190 lb Last Vital Signs Temp Pulse Resp BP Pulse Ox 98.0 F 92 H 19 161/79 100 06/09/16 08:00 06/09/16 08:00 06/09/16 09:00 06/09/16 08:00 06/09/16 09:00 Active Medications Acetaminophen (Tylenol -) 650 mg PO Q6H PRN PRN Reason: FEVER OR PAIN Last Admin: 06/08/16 10:32 Dose: 650 mg Albuterol/Ipratropium (Duoneb -) 1 amp NEB QIDR [facility] Last Admin: 06/09/16 12:43 Dose: 1 amp Amlodipine Besylate (Norvasc -) 2.5 mg PO DAILY [facility] Last Admin: 06/09/16 10:18 Dose: 2.5 mg Aspirin (Asa -) 81 mg PO DAILY [facility] Last Admin: 06/09/16 10:18 Dose: 81 mg Atorvastatin Calcium (Lipitor -) 10 mg PO HS [facility] Last Admin: 06/08/16 22:12 Dose: 10 mg Cholecalciferol (Vitamin D3 -) 1,000 unit PO BID [facility] Last Admin: 06/09/16 10:18 Dose: 1,000 unit Sodium Chloride (Normal Saline -) 1,000 mls @ 50 mls/hr IV ASDIR [facility] Last Admin: 06/09/16 10:19 Dose: 50 mls/hr Ceftriaxone Sodium (Rocephin 2gm Ivpb (Pre-Docked)) 100 mls @ 200 mls/hr IVPB DAILY [facility] Last Admin: 06/09/16 10:17 Dose: 200 mls/hr Azithromycin (Zithromax 500mg Ivpb (Pre-Docked)) 250 mls @ 250 mls/hr IVPB DAILY [facility] Last Admin: 06/09/16 10:17 Dose: 250 mls/hr Insulin Aspart (Novolog Vial Sliding Scale -) 1 vial SQ ACHS [facility] PRN Reason: Protocol Last Admin: 06/09/16 12:12 Dose: 6 unit Losartan Potassium (Cozaar -) 50 mg PO DAILY [facility] Last Admin: 06/09/16 10:18 Dose: 50 mg Metoprolol Succinate 50 mg/ (Metoprolol Succinate 25 mg) 75 mg PO DAILY [facility] Prasugrel (Effient -) 10 mg PO DAILY [facility] Last Admin: 06/09/16 13:07 Dose: 10 mg Ranitidine HCl (Zantac -) 150 mg PO DAILY [facility] Ranolazine (Ranexa -) 1,000 mg PO BID [facility] Last Admin: 06/09/16 10:18 Dose: 1,000 mg GENERAL: NAD HEAD: Normal with no signs of trauma. EYES: Pupils equal, round and reactive to light, extraocular movements intact, sclera anicteric, conjunctiva clear. No lid lag. EARS, NOSE, THROAT: Ears normal, nares patent, oropharynx clear without exudates. NECK: Normal range of motion, supple without lymphadenopathy, JVD, or masses. LUNGS: Scattered rhonchi. No wheeze. No accessory muscle use. HEART: Regular rate and rhythm, normal S1 and S2 without murmur, rub or gallop. ABDOMEN: Soft, nontender, not distended, normoactive bowel sounds, no guarding, no rebound, no masses. No hepatomegaly or splenomegaly. MUSCULOSKELETAL: Normal range of motion at all joints. No bony deformities or tenderness. No CVA tenderness. UPPER EXTREMITIES: 2+ pulses, warm, well-perfused. No cyanosis. No clubbing. Cap refill <2 seconds. No peripheral edema. LOWER EXTREMITIES: 2+ pulses, warm, well-perfused. No calf tenderness. No peripheral edema. NEUROLOGICAL: non-focal PSYCHIATRIC: Cooperative. Good eye contact. Appropriate mood and affect. SKIN: Warm, dry, normal turgor, no rashes or lesions noted. Laboratory Results - last 24 hr 03/08/2006/09/16 06/09/16 22:18 06:21 07:50 WBC 6.1 RBC 3.79 L Hgb 11.7 Hct 35.0 L MCV 92.3 MCHC 33.4 RDW 11.7 L Plt Count 413 MPV 7.8 Neutrophils % 73.6 Lymphocytes % 13.0 D Monocytes % 9.2 Eosinophils % 3.5 Basophils % 0.7 D INR Sodium Potassium Chloride Carbon Dioxide Anion Gap BUN Creatinine Creat Clearance w eGFR POC Glucometer 240 172 Random Glucose Calcium Total Bilirubin AST ALT Alkaline Phosphatase C-Reactive Protein Total Protein Albumin Urine Osmolality 06/09/16 06/09/16 06/09/16 07:50 07:50 08:00 WBC RBC Hgb Hct MCV MCHC RDW Plt Count MPV Neutrophils % Lymphocytes % Monocytes % Eosinophils % Basophils % INR 1.21 Sodium 135 L Potassium 3.8 Chloride 100 Carbon Dioxide 27 Anion Gap 8 BUN 7 D Creatinine 0.8 Creat Clearance w eGFR > 60 POC Glucometer Random Glucose 213 H D Calcium 8.8 Total Bilirubin 0.8 AST 29 D ALT 39 D Alkaline Phosphatase 77 C-Reactive Protein Total Protein 7.0 Albumin 3.0 L Urine Osmolality 308 06/09/16 06/09/16 12:08 Unknown WBC RBC Hgb Hct MCV MCHC RDW Plt Count MPV Neutrophils % Lymphocytes % Monocytes % Eosinophils % Basophils % INR Sodium Potassium Chloride Carbon Dioxide Anion Gap BUN Creatinine Creat Clearance w eGFR POC Glucometer 294 Random Glucose Calcium Total Bilirubin AST ALT Alkaline Phosphatase C-Reactive Protein 8.3 H Total Protein Albumin Urine Osmolality ASSESSMENT AND PLAN: DAWSON CAP DM HTN HPL CAD PLAN: ABX per ID Check sputum AFB Noted Quantiferon Gold is ordered O2 as needed Daily Medrol Isolation Will need follow up imaging in 4 to 6 weeks Will follow Thank you. Dr Cornejo
--- NOTE | 2016-06-09 16:23 | CONSULT ---
Consultation: REQUESTING PROVIDER: CONSULT REQUEST: We have been asked to medically evaluate this patient for sob, cough, rigors. HISTORY OF PRESENT ILLNESS: This is a 70 yo M with PMH of HTN, HLD, CAD s/p stents and CABG, who presents due to cough x 4 days. Patient states that he also has been having subjective fevers. He has associated myalgia, rigots, night sweats, and right before admission some mild hemoptysis. Patient used to smoke cigars but not cigarettes , He is From [place] and has had Tb vaccine. He has not been in contact with any people infected wit TB as far as he knows. He is on anticoagulation for his stents. he has never had PNA before. He denies history of immunosupression. He currently feels better, afebrile and hemodynamically stable, 98% on RA, less cough and resolved hemoptysis. he denies f/c, ches pain, h/a, sweating, weight loss. REVIEW OF SYSTEMS: CONSTITUTIONAL: Absent: loss of appetite, weight change HEENT: Absent: rhinorrhea, nasal congestion, throat pain CARDIOVASCULAR: Absent: chest pain, syncope, palpitations RESPIRATORY: Absent: shortness of breath, orthopnea, wheezing GASTROINTESTINAL: Absent: abdominal pain, abdominal distension, nausea, vomiting, diarrhea GENITOURINARY: Absent: dysuria MUSCULOSKELETAL: Absent: back pain, neck pain SKIN: Absent: rash, itching, pallor HEMATOLOGIC/IMMUNOLOGIC: Absent: frequent infections ENDOCRINE: Absent: unexplained weight gain, unexplained weight loss NEUROLOGIC: Absent: headache, focal weakness or paresthesias PSYCHIATRIC: Absent: anxiety, depression PHYSICAL EXAMINATION Vital Signs - 24 hr 06/08/16 06/08/16 06/09/16 20:00 20:38 02:00 Temperature 99.3 F 98.0 F Pulse Rate 90 92 H Respiratory 18 18 19 Rate Blood Pressure 134/61 147/71 O2 Sat by Pulse 97 Oximetry (%) 06/09/16 06/09/16 06/09/16 06:03 08:00 09:00 Temperature 98.0 F Pulse Rate 92 H Respiratory 19 19 Rate Blood Pressure 161/79 O2 Sat by Pulse 100 100 Oximetry (%) GENERAL: Awake, alert, and fully oriented, in no acute distress. HEAD: Normal with no signs of trauma. EYES: Pupils equal, round and reactive to light, extraocular movements intact, sclera anicteric, conjunctiva clear. EARS, NOSE, THROAT: Moist mucous membranes. NECK: supple without masses. LUNGS: reduced breath sounds in DAWSON HEART: Regular rate and rhythm, normal S1 and S2 ABDOMEN: Soft, nontender, not distended, normoactive bowel sounds MUSCULOSKELETAL: No CVA tenderness. UPPER EXTREMITIES: 2+ pulses, No peripheral edema. LOWER EXTREMITIES: 2+ pulses No peripheral edema. NEUROLOGICAL: Cranial nerves II-XII grossly intact. Normal speech. PSYCHIATRIC: Cooperative. Good eye contact. Appropriate mood and affect. SKIN: Warm, dry Laboratory Results - last 24 hr 06/08/16 06/09/16 06/09/16 22:18 06:21 07:50 WBC 6.1 RBC 3.79 L Hgb 11.7 Hct 35.0 L MCV 92.3 MCHC 33.4 RDW 11.7 L Plt Count 413 MPV 7.8 Neutrophils % 73.6 Lymphocytes % 13.0 D Monocytes % 9.2 Eosinophils % 3.5 Basophils % 0.7 D INR Sodium Potassium Chloride Carbon Dioxide Anion Gap BUN Creatinine Creat Clearance w eGFR POC Glucometer 240 172 Random Glucose Calcium Total Bilirubin AST ALT Alkaline Phosphatase C-Reactive Protein Total Protein Albumin Urine Osmolality 06/09/16 06/09/16 06/09/16 07:50 07:50 08:00 WBC RBC Hgb Hct MCV MCHC RDW Plt Count MPV Neutrophils % Lymphocytes % Monocytes % Eosinophils % Basophils % INR 1.21 Sodium 135 L Potassium 3.8 Chloride 100 Carbon Dioxide 27 Anion Gap 8 BUN 7 D Creatinine 0.8 Creat Clearance w eGFR > 60 POC Glucometer Random Glucose 213 H D Calcium 8.8 Total Bilirubin 0.8 AST 29 D ALT 39 D Alkaline Phosphatase 77 C-Reactive Protein Total Protein 7.0 Albumin 3.0 L Urine Osmolality 308 06/09/16 06/09/16 12:08 Unknown WBC RBC Hgb Hct MCV MCHC RDW Plt Count MPV Neutrophils % Lymphocytes % Monocytes % Eosinophils % Basophils % INR Sodium Potassium Chloride Carbon Dioxide Anion Gap BUN Creatinine Creat Clearance w eGFR POC Glucometer 294 Random Glucose Calcium Total Bilirubin AST ALT Alkaline Phosphatase C-Reactive Protein 8.3 H Total Protein Albumin Urine Osmolality Active Medications Generic Name Dose Route Start Last Admin Trade Name Freq PRN Reason Stop Dose Admin Acetaminophen 650 mg 06/07/16 23:22 06/08/16 10:32 Tylenol - PO 650 mg Q6H PRN Administration FEVER OR PAIN Albuterol/Ipratropium 1 amp 06/09/16 08:45 06/09/16 12:43 Duoneb - NEB 1 amp QIDR MARYANN Administration Amlodipine Besylate 2.5 mg 06/08/16 10:00 06/09/16 10:18 Norvasc - PO 2.5 mg DAILY MARYANN Administration Aspirin 81 mg 06/08/16 10:00 06/09/16 10:18 Asa - PO 81 mg DAILY MARYANN Administration Atorvastatin Calcium 10 mg 06/08/16 22:00 06/08/16 22:12 Lipitor - PO 10 mg HS MARYANN Administration Cholecalciferol 1,000 unit 06/08/16 10:00 06/09/16 10:18 Vitamin D3 - PO 1,000 unit BID MARYANN Administration Sodium Chloride 1,000 mls @ 50 mls/hr 06/08/16 06:30 06/09/16 10:19 Normal Saline - IV 50 mls/hr ASDIR MARYANN Administration Ceftriaxone Sodium 100 mls @ 200 mls/hr 06/09/16 10:00 06/09/16 10:17 Rocephin 2gm Ivpb (Pre-Docked) IVPB 200 mls/hr DAILY MARYANN Administration Azithromycin 250 mls @ 250 mls/hr 06/09/16 10:00 06/09/16 10:17 Zithromax 500mg Ivpb (Pre-Docked) IVPB 250 mls/hr DAILY MARYANN Administration Insulin Aspart 1 vial 06/08/16 11:00 06/09/16 12:12 Novolog Vial Sliding Scale - SQ 6 unit ACHS MARYANN Administration Protocol Losartan Potassium 50 mg 06/09/16 10:00 06/09/16 10:18 Cozaar - PO 50 mg DAILY MARYANN Administration Methylprednisolone Sodium Succinate 40 mg 06/09/16 16:00 Solu-Medrol - IVPB DAILY MARYANN Metoprolol Succinate 50 mg/ 75 mg 06/10/16 10:00 Metoprolol Succinate 25 mg PO DAILY MARYANN Prasugrel 10 mg 06/08/16 10:00 06/09/16 13:07 Effient - PO 10 mg DAILY MARYANN Administration Ranitidine HCl 150 mg 06/10/16 10:00 Zantac - PO DAILY MARYANN Ranolazine 1,000 mg 06/08/16 10:00 06/09/16 10:18 Ranexa - PO 1,000 mg BID MARYANN Administration ASSESSMENT/PLAN: Community Acquired PNA -DAWSON -CXR DAWSON infiltrate -CT chest: nodulat DAWSON infiltrate, reactive hilar adenopathy -hemoptysis -likely strep pneumo but cant r/o TB due to risk factors -Qualnt gold p/d -flu negative -legionella negative -blood culture negative -ID consult: rocephin and zosyn -medrol 40 d -duoneb -symptomatic improvement -isolation HTN -cozaar -norvasc HLD -lipitor DM -slidding scale CAD s/p stent, CABG -effient -asa -metoprolol Dispo: We will continue to follow the patient. Thank you for this consultative opportunity. Problem List - Problems (1) Community acquired pneumonia Code(s): J18.9 - PNEUMONIA, UNSPECIFIED ORGANISM (2) DVT prophylaxis Code(s): TBV5238 - (3) Diabetes mellitus Code(s): E11.9 - TYPE 2 DIABETES MELLITUS WITHOUT COMPLICATIONS (4) HLD (hyperlipidemia) Code(s): E78.5 - HYPERLIPIDEMIA, UNSPECIFIED (5) HTN (hypertension) Code(s): I10 - ESSENTIAL (PRIMARY) HYPERTENSION (6) Sepsis Code(s): A41.9 - SEPSIS, UNSPECIFIED ORGANISM Visit type - Emergency Visit Emergency Visit: Yes ED Registration Date: 06/07/16 Care time: The patient presented to the Emergency Department on the above date and was hospitalized for further evaluation of their emergent condition. - New Patient This patient is new to me today: Yes Date on this admission: 06/09/16 - Critical Care Critical Care patient: No
[2016-06-09] MEDS: methylPREDNISolone NA SUCC 40 MG/1 ML VIAL IVPB SCH (16:51)
--- NOTE | 2016-06-09 18:29 | CONS ---
DATE OF CONSULTATION: DATE OF DICTATION: 06/09/2016 The patient is a 70-year-old [place] male with a history of diabetes mellitus, now evaluated for left upper lobe infiltrate. He presented to the hospital on June 07, 2016 with complaints of cough, body aches, fevers, chills and generalized weakness. Patient had reported 4-5 episodes of blood-streaked sputum. He presented to his primary care doctor on June 05, 2016 and was prescribed Biaxin. Despite the antibiotic therapy, he did not improve. He presented to emergency room where a chest x-ray showed a left upper lobe infiltrate. He was also noted to be hyponatremic. The patient was admitted to the floor and was empirically treated with ceftriaxone and doxycycline. A CAT scan done today now shows a nodular left upper lobe infiltrate. Patient has had 4-5 episodes of blood-streaked sputum. He denies any chest pain or shortness of breath. He has had no complaints of night sweats or weight loss. The patient is originally from [facility], has been living in the [facility] since 1983. He last returned to [facility] approximately 3-1/2 years ago. He denies any TB exposure. States he received BCG in childhood. PAST MEDICAL HISTORY: Positive for coronary artery disease. He is status post coronary artery stents and coronary artery bypass graft in 2001. Coronary artery stents in 2014 and 2016. Past medical history also includes hypertension, hyperlipidemia, diabetes mellitus. No known allergies. MEDICATIONS: Include Norvasc, aspirin, Glucotrol, losartan, Toprol, omeprazole, Pravachol, Janumet. SOCIAL HISTORY: As per HPI. Originally from [facility]. Has been living in the [facility] since 1983. He is a retired banker. Smoked cigars in the past; however, no cigarette smoking. Denies recent travel or significant pet exposure. SYSTEMS REVIEW: Neurologic: No loss of consciousness, seizure activity, focal weakness. Cardiac: Negative chest pain or palpitations. Respiratory: As per HPI. Gastrointestinal: Negative vomiting or diarrhea. Genitourinary: Negative for urinary tract infection. LABORATORY DATA: White count 6.1; 73 neutrophils, 13 lymphocytes, 9 monocytes, 3 eosinophils; hematocrit 35.0, platelet count 413. BUN 10, creatinine 1.0. Urine leukocyte esterase negative. Sodium 132. Blood cultures pending. Influenza swab negative. Urine: Pneumococcal antigen negative. Chest x-ray and CAT scan as mentioned. PHYSICAL EXAMINATION: General: On examination, he is not acutely toxic-appearing. Vital signs: Temperature 98.0, blood pressure 161/79, pulse 92 and regular, respirations 19 per minute. Eyes: Sclerae are anicteric. Cardiovascular: Heart sounds: S1, S2. Lungs: A few rhonchi right upper lung field; otherwise, clear. Abdomen: Soft, no tenderness elicited. No mass, rebound or rigidity. Extremities: Negative for edema. IMPRESSION: Nodular left upper lobe infiltrate in this 70-year-old [place] male with 4-5 episodes of blood-streaked sputum. 1. Possible pulmonary tuberculosis. 2. Possible community-acquired versus atypical pneumonia. 3. Diabetes mellitus. 4. Hyponatremia, possibly on the basis of adrenal involvement of pulmonary process. Advise AFB isolation. Sputum AFB. QuantiFERON. Sputum for a routine culture and sensitivity. Legionella and pneumococcal antigen. Empiric antibiotic coverage with ceftriaxone and Zithromax. Will follow. Thank you for the kind referral. REMY HAY M.D. [id number]
[2016-06-09] MEDS: ACETAMINOPHEN 325 MG TABLET (FP) PO PRN (18:56)
[2016-06-09] MEDS: ATORVASTATIN CA 10 MG TABLET (FP) PO SCH (22:54)
[2016-06-10] MEDS: SODIUM CHLORIDE 1,000 ML IV SCH (06:39)
[2016-06-10] MEDS: INSULIN SLIDING SCALE (NOVOLOG) 1 VIAL SQ SCH ×4 (06:41→21:59)
[2016-06-10] MEDS: ALBUTEROL SO4 2.5/IPRATROPIUM 0.5 INH SOL 3 ML VIAL.NEB. NEB SCH ×4 (06:56→23:25)
[2016-06-10 08:20] LABS: BASOPHIL 0.1 % (0-2.0); MCH 31.5 pg (25.7-33.7); MCHC 34.2 g/dl (32.0-35.9); MEAN CELL VOLUME 92.3 fl (80-96); MEAN PLT VOLUME 7.5 fl (7.5-11.1); NEUTROPHILS 85.5 % (42.8-82.8); PLATELET COUNT 414 K/MM3 (134-434); RDW 12.8 % (11.9-15.9)
[2016-06-10 08:40] LABS: ALBUMIN 3.1 g/dl (3.4-5.0); ANION GAP 15 (8-16); CALCIUM 9.1 mg/dL (8.5-10.1); CO2 24 mmol/L (21-32); CREATININE 0.9 mg/dL (0.7-1.3); GLUCOSE,RANDOM 255 mg/dL (74-106); MAGNESIUM 1.9 mg/dL (1.8-2.4); PHOSPHOROUS 3.3 mg/dL (2.5-4.9); SGOT/AST 30 U/L (15-37)
[2016-06-10 08:43] LABS: ALK PHOS 91 U/L (45-117); BILIRUBIN,TOTAL 0.4 mg/dL (0.2-1.0); SGPT/ALT 47 U/L (12-78); TOT PROT 7.4 g/dl (6.4-8.2)
[2016-06-10] MEDS ORDERED: METOPROLOL SUCCINATE 50 MG TAB.SR.24H (FP) ONE (09:29)
[2016-06-10] MEDS ORDERED: METOPROLOL SUCCINATE 25 MG TAB.SR.24H (FP) ONE (09:29)
[2016-06-10] MEDS ORDERED: PT OWN MED DRAWER 7, Y5N ONE (09:31)
[2016-06-10] MEDS: methylPREDNISolone NA SUCC 40 MG/1 ML VIAL IVPB SCH (09:38)
[2016-06-10] MEDS: PRASUGREL HCL 10 MG TAB PO SCH (09:38)
[2016-06-10] MEDS: RANOLAZINE E.R. 500 MG TABLET (FP) PO SCH ×2 (09:39→21:59)
[2016-06-10] MEDS: RANITIDINE HCL 150 MG TABLET (FP) PO SCH (09:39)
[2016-06-10] MEDS: amLODIPine BESYLATE 2.5 MG TABLET (FP) PO SCH (09:40)
[2016-06-10] MEDS: LOSARTAN POTASSIUM 50 MG TABLET (FP) PO SCH (09:40)
[2016-06-10] MEDS: CHOLECALCIFEROL (VITAMIN D3) 1,000 UNIT TABLET (FP) PO SCH ×2 (09:40→22:00)
[2016-06-10] MEDS: ASPIRIN 81 MG CHEWABLE TABLETS PO SCH (09:40)
[2016-06-10] MEDS: METOPROLOL SUCCINATE 50 MG, METOPROLOL SUCCINATE 25 MG PO SCH (09:40)
[2016-06-10] MEDS: ACETAMINOPHEN 325 MG TABLET (FP) PO PRN (09:40)
[2016-06-10] MEDS: CEFTRIAXONE 100 ML IVPB SCH (11:07)
--- NOTE | 2016-06-10 11:38 | PN ---
Progress Note (short form) - Note Progress Note: Reports feeling 90% better. Residual cough. No hemoptysis. (?) night sweats -> the back of his gown was slightly wet this AM. Intake & Output 06/07/16 06/08/16 06/09/16 06/10/16 23:59 23:59 23:59 23:59 Intake Total 800 1675 300 Output Total 300 350 Balance -169 156 4291 300 Weight 190 lb Last Vital Signs Temp Pulse Resp BP Pulse Ox 98.6 F 95 H 20 142/76 98 06/10/16 06:27 06/10/16 06:27 06/10/16 06:27 06/10/16 06:27 06/09/16 21:00 Active Medications Acetaminophen (Tylenol -) 650 mg PO Q6H PRN PRN Reason: FEVER OR PAIN Last Admin: 06/10/16 09:40 Dose: 650 mg Albuterol/Ipratropium (Duoneb -) 1 amp NEB QIDR [facility] Last Admin: 06/10/16 06:56 Dose: 1 amp Amlodipine Besylate (Norvasc -) 2.5 mg PO DAILY [facility] Last Admin: 06/10/16 09:40 Dose: 2.5 mg Aspirin (Asa -) 81 mg PO DAILY [facility] Last Admin: 06/10/16 09:40 Dose: 81 mg Atorvastatin Calcium (Lipitor -) 10 mg PO HS [facility] Last Admin: 06/09/16 22:54 Dose: 10 mg Cholecalciferol (Vitamin D3 -) 1,000 unit PO BID [facility] Last Admin: 06/10/16 09:40 Dose: 1,000 unit Sodium Chloride (Normal Saline -) 1,000 mls @ 50 mls/hr IV ASDIR [facility] Last Admin: 06/10/16 06:39 Dose: Not Given Ceftriaxone Sodium (Rocephin 2gm Ivpb (Pre-Docked)) 100 mls @ 200 mls/hr IVPB DAILY [facility] Last Admin: 06/10/16 11:07 Dose: 200 mls/hr Azithromycin (Zithromax 500mg Ivpb (Pre-Docked)) 250 mls @ 250 mls/hr IVPB DAILY [facility] Last Admin: 06/09/16 10:17 Dose: 250 mls/hr Insulin Aspart (Novolog Vial Sliding Scale -) 1 vial SQ ACHS [facility] PRN Reason: Protocol Last Admin: 06/10/16 06:41 Dose: 4 units Losartan Potassium (Cozaar -) 50 mg PO DAILY [facility] Last Admin: 06/10/16 09:40 Dose: 50 mg Methylprednisolone Sodium Succinate (Solu-Medrol -) 40 mg IVPB DAILY [facility] Last Admin: 06/10/16 09:38 Dose: 40 mg Metoprolol Succinate 50 mg/ (Metoprolol Succinate 25 mg) 75 mg PO DAILY [facility] Last Admin: 06/10/16 09:40 Dose: 75 mg Prasugrel (Effient -) 10 mg PO DAILY [facility] Last Admin: 06/10/16 09:38 Dose: 10 mg Ranitidine HCl (Zantac -) 150 mg PO DAILY [facility] Last Admin: 06/10/16 09:39 Dose: 150 mg Ranolazine (Ranexa -) 1,000 mg PO BID [facility] Last Admin: 06/10/16 09:39 Dose: 1,000 mg GENERAL: NAD HEAD: Normal with no signs of trauma. EYES: sclera anicteric, conjunctiva clear EARS, NOSE, THROAT: Ears normal, nares patent, oropharynx clear without exudates. NECK: Normal range of motion, supple without lymphadenopathy, JVD, or masses. LUNGS: Few scattered rhonchi. No wheeze. No accessory muscle use. HEART: Regular rate and rhythm, normal S1 and S2 ABDOMEN: Soft, nontender, not distended, (+) BS bowel sounds MUSCULOSKELETAL: Normal range of motion at all joints. No bony deformities or tenderness. No CVA tenderness. UPPER EXTREMITIES: 2+ pulses, warm, well-perfused. No cyanosis. No clubbing. Cap refill <2 seconds. No peripheral edema. LOWER EXTREMITIES: 2+ pulses, warm, well-perfused. No calf tenderness. No peripheral edema. NEUROLOGICAL: non-focal PSYCHIATRIC: Appropriate mood and affect. SKIN: Warm, dry, normal turgor, no rashes or lesions noted. Laboratory Results - last 24 hr 06/09/16 06/09/16 06/09/16 08:00 12:08 16:53 WBC RBC Hgb Hct MCV MCHC RDW Plt Count MPV Neutrophils % Lymphocytes % Monocytes % Eosinophils % Basophils % Sodium Potassium Chloride Carbon Dioxide Anion Gap BUN Creatinine Creat Clearance w eGFR POC Glucometer 294 185 Random Glucose Calcium Phosphorus Magnesium Total Bilirubin AST ALT Alkaline Phosphatase C-Reactive Protein Total Protein Albumin Urine Osmolality 308 06/09/16 06/09/16 06/10/16 22:38 Unknown 06:00 WBC 10.0 RBC 3.75 L Hgb 11.8 Hct 34.6 L MCV 92.3 MCHC 34.2 RDW 12.8 Plt Count 414 MPV 7.5 Neutrophils % 85.5 H Lymphocytes % 7.4 L Monocytes % 7.0 Eosinophils % 0.0 Basophils % 0.1 Sodium Potassium Chloride Carbon Dioxide Anion Gap BUN Creatinine Creat Clearance w eGFR POC Glucometer 358 Random Glucose Calcium Phosphorus Magnesium Total Bilirubin AST ALT Alkaline Phosphatase C-Reactive Protein 8.3 H Total Protein Albumin Urine Osmolality 06/10/16 06/10/16 06:00 06:35 WBC RBC Hgb Hct MCV MCHC RDW Plt Count MPV Neutrophils % Lymphocytes % Monocytes % Eosinophils % Basophils % Sodium 139 Potassium 4.5 Chloride 100 Carbon Dioxide 24 Anion Gap 15 BUN 11 Creatinine 0.9 Creat Clearance w eGFR > 60 POC Glucometer 245 Random Glucose 255 H Calcium 9.1 Phosphorus 3.3 Magnesium 1.9 Total Bilirubin 0.4 AST 30 ALT 47 Alkaline Phosphatase 91 C-Reactive Protein Total Protein 7.4 Albumin 3.1 L Urine Osmolality ASSESSMENT AND PLAN: DAWSON CAP DM HTN HPL CAD PLAN: ABX per ID Follow sputums Noted Quantiferon Gold is ordered O2 as needed Daily Medrol Isolation Will need follow up imaging in [address] Cornejo
[2016-06-10] MEDS: AZITHROMYCIN IVPB 250 ML IVPB SCH (12:02)
--- NOTE | 2016-06-10 14:48 | PN ---
Progress Note, Physician History of Present Illness: Reports less cough Denies hemoptysis No c/o dyspnea/ chest pain No fever/ chills Sputum AFB pending - Current Medication List Current Medications: Active Medications Acetaminophen (Tylenol -) 650 mg PO Q6H PRN PRN Reason: FEVER OR PAIN Last Admin: 06/10/16 09:40 Dose: 650 mg Albuterol/Ipratropium (Duoneb -) 1 amp NEB QIDR [facility] Last Admin: 06/10/16 11:45 Dose: Not Given Amlodipine Besylate (Norvasc -) 2.5 mg PO DAILY [facility] Last Admin: 06/10/16 09:40 Dose: 2.5 mg Aspirin (Asa -) 81 mg PO DAILY [facility] Last Admin: 06/10/16 09:40 Dose: 81 mg Atorvastatin Calcium (Lipitor -) 10 mg PO HS [facility] Last Admin: 06/09/16 22:54 Dose: 10 mg Cholecalciferol (Vitamin D3 -) 1,000 unit PO BID [facility] Last Admin: 06/10/16 09:40 Dose: 1,000 unit Sodium Chloride (Normal Saline -) 1,000 mls @ 50 mls/hr IV ASDIR [facility] Last Admin: 06/10/16 06:39 Dose: Not Given Ceftriaxone Sodium (Rocephin 2gm Ivpb (Pre-Docked)) 100 mls @ 200 mls/hr IVPB DAILY [facility] Last Admin: 06/10/16 11:07 Dose: 200 mls/hr Azithromycin (Zithromax 500mg Ivpb (Pre-Docked)) 250 mls @ 250 mls/hr IVPB DAILY [facility] Last Admin: 06/10/16 12:02 Dose: 250 mls/hr Insulin Aspart (Novolog Vial Sliding Scale -) 1 vial SQ ACHS [facility] PRN Reason: Protocol Last Admin: 06/10/16 12:14 Dose: 8 units Losartan Potassium (Cozaar -) 50 mg PO DAILY [facility] Last Admin: 06/10/16 09:40 Dose: 50 mg Methylprednisolone Sodium Succinate (Solu-Medrol -) 40 mg IVPB DAILY [facility] Last Admin: 06/10/16 09:38 Dose: 40 mg Metoprolol Succinate 50 mg/ (Metoprolol Succinate 25 mg) 75 mg PO DAILY [facility] Last Admin: 06/10/16 09:40 Dose: 75 mg Prasugrel (Effient -) 10 mg PO DAILY [facility] Last Admin: 06/10/16 09:38 Dose: 10 mg Ranitidine HCl (Zantac -) 150 mg PO DAILY [facility] Last Admin: 06/10/16 09:39 Dose: 150 mg Ranolazine (Ranexa -) 1,000 mg PO BID [facility] Last Admin: 06/10/16 09:39 Dose: 1,000 mg - Objective Vital Signs: Vital Signs Temperature 98.4 F 06/10/16 14:27 Pulse Rate 80 06/10/16 14:27 Respiratory Rate 16 06/10/16 14:27 Blood Pressure 122/78 06/10/16 14:27 O2 Sat by Pulse Oximetry (%) 98 06/09/16 21:00 Constitutional: Yes: No Distress Eyes: Yes: Conjunctiva Clear Cardiovascular: Yes: Regular Rate and Rhythm, S1, S2 Respiratory: Yes: CTA Bilaterally Gastrointestinal: Yes: Normal Bowel Sounds, Soft. No: Tenderness Edema: No Labs: CBC, BMP 06/10/16 06:00 06/10/16 06:00 INR, PTT INR 1.21 (0.82-1.09) 06/09/16 07:50 Assessment/Plan DAWSON infiltrate possible AFB disease v. community acquired/ atypical S/P hemoptysis Hyponatremia- resolved await sputum AFB, sputum c/s Continue empiric ceftriaxone D/C zithromax
--- NOTE | 2016-06-10 15:14 | PN ---
Physical Exam: SUBJECTIVE: Patient seen and examined. Patient resting in bed, in good spirits. Denies any pain, nausea, hemoptysis or shortness of breath. He is able to ambulate around the room. Having some coughing. OBJECTIVE: Vital Signs Period Temp Pulse Resp BP Sys/Alcaraz Pulse Ox Last 24 Hr 98.4 F-98.6 F 80-96 16-20 122-142/76-78 98 GENERAL: Awake, alert, and fully oriented, in no acute distress. HEAD: Normal with no signs of trauma. EYES: Pupils equal, round and reactive to light, extraocular movements intact, sclera anicteric, conjunctiva clear. ENT: Moist mucous membranes. NECK: supple LUNGS: anterior lungs clear, diminished on left upper lobe, right lung clear. HEART: Regular rate and rhythm, normal S1 and S2 ABDOMEN: Soft, nontender, not distended, normoactive bowel sounds UPPER EXTREMITIES: No peripheral edema. LOWER EXTREMITIES: No peripheral edema. NEUROLOGICAL: Normal speech. PSYCHIATRIC: Cooperative. Good eye contact. Appropriate mood and affect. Laboratory Results - last 24 hr 06/09/16 06/09/16 06/10/16 16:53 22:38 06:00 WBC 10.0 RBC 3.75 L Hgb 11.8 Hct 34.6 L MCV 92.3 MCHC 34.2 RDW 12.8 Plt Count 414 MPV 7.5 Neutrophils % 85.5 H Lymphocytes % 7.4 L Monocytes % 7.0 Eosinophils % 0.0 Basophils % 0.1 Sodium Potassium Chloride Carbon Dioxide Anion Gap BUN Creatinine Creat Clearance w eGFR POC Glucometer 185 358 Random Glucose Calcium Phosphorus Magnesium Total Bilirubin AST ALT Alkaline Phosphatase Total Protein Albumin 06/10/16 06/10/16 06/10/16 06:00 06:35 12:04 WBC RBC Hgb Hct MCV MCHC RDW Plt Count MPV Neutrophils % Lymphocytes % Monocytes % Eosinophils % Basophils % Sodium 139 Potassium 4.5 Chloride 100 Carbon Dioxide 24 Anion Gap 15 BUN 11 Creatinine 0.9 Creat Clearance w eGFR > 60 POC Glucometer 245 303 Random Glucose 255 H Calcium 9.1 Phosphorus 3.3 Magnesium 1.9 Total Bilirubin 0.4 AST 30 ALT 47 Alkaline Phosphatase 91 Total Protein 7.4 Albumin 3.1 L Active Medications Generic Name Dose Route Start Last Admin Trade Name Freq PRN Reason Stop Dose Admin Acetaminophen 650 mg 06/07/16 23:22 06/10/16 09:40 Tylenol - PO 650 mg Q6H PRN Administration FEVER OR PAIN Albuterol/Ipratropium 1 amp 06/09/16 08:45 06/10/16 11:45 Duoneb - NEB Not Given QIDR MARYANN Amlodipine Besylate 2.5 mg 06/08/16 10:00 06/10/16 09:40 Norvasc - PO 2.5 mg DAILY MARYANN Administration Aspirin 81 mg 06/08/16 10:00 06/10/16 09:40 Asa - PO 81 mg DAILY MARYANN Administration Atorvastatin Calcium 10 mg 06/08/16 22:00 06/09/16 22:54 Lipitor - PO 10 mg HS MARYANN Administration Cholecalciferol 1,000 unit 06/08/16 10:00 06/10/16 09:40 Vitamin D3 - PO 1,000 unit BID MARYANN Administration Sodium Chloride 1,000 mls @ 50 mls/hr 06/08/16 06:30 06/10/16 06:39 Normal Saline - IV Not Given ASDIR MARYANN Ceftriaxone Sodium 100 mls @ 200 mls/hr 06/09/16 10:00 06/10/16 11:07 Rocephin 2gm Ivpb (Pre-Docked) IVPB 200 mls/hr DAILY MARYANN Administration Insulin Aspart 1 vial 06/08/16 11:00 06/10/16 12:14 Novolog Vial Sliding Scale - SQ 8 units ACHS MARYANN Administration Protocol Losartan Potassium 50 mg 06/09/16 10:00 06/10/16 09:40 Cozaar - PO 50 mg DAILY MARYANN Administration Methylprednisolone Sodium Succinate 40 mg 06/09/16 16:00 06/10/16 09:38 Solu-Medrol - IVPB 40 mg DAILY MARYANN Administration Metoprolol Succinate 50 mg/ 75 mg 06/10/16 10:00 06/10/16 09:40 Metoprolol Succinate 25 mg PO 75 mg DAILY MARYANN Administration Prasugrel 10 mg 06/08/16 10:00 06/10/16 09:38 Effient - PO 10 mg DAILY MARYANN Administration Ranitidine HCl 150 mg 06/10/16 10:00 06/10/16 09:39 Zantac - PO 150 mg DAILY MARYANN Administration Ranolazine 1,000 mg 06/08/16 10:00 06/10/16 09:39 Ranexa - PO 1,000 mg BID MARYANN Administration ASSESSMENT/PLAN: Patient is a 70 year old male with a significant past medical history of hypertension, HLD, CAD with stents x 4, quad bypass. He presented to [place] on 06/07/2016 with fever, chills and generalized body aches and dry cough. He reports fevers at home of 101F. He was seen by his PCP and was placed on PO antibiotics on . He felt better on Thursday but began to cough and noted he had blood tinged phlegm. Patient denies recent travel or sick contacts. P He was transferred from [place] to [facility] and placed on airborne isolation to rule TB. Sepsis: Likely secondary to Pneumonia/Rule out TB - acute Assessment/Plan: Chest Xray with Left upper lobe infiltrate Lactic acid 2.4 > 1.0, given NS bolus in ED Had hemoptysis on admission. none now: Rule out TB Quant. Gold pending, AFB sputum pending Flu negative ID following: On Rocephin started 06/09/2016 On airborne isolation Cardiology: Hypertension - chronic Assessment/Plan: On Cozaar and Norvasc Monitor BP trend Hyperlipidemia - chronic Assessment/Plan: On Lipitor CAD with stents/CABG Assessment/Plan: On ASA 81mg daily, Effient 10mg and Metoprolol 75mg Endocrine Diabetes Mellitus - chronic Assessment/Plan: On Novolog sliding scale Added Levemir 5 units tonight for elevated BGMs. F.E.N. Fluids: NS @50cc/hr Electrolytes: monitor bmp Nutrition: regular diet Prophylaxis: GI: Zantac DVT: ambulatory patient, SCDs in bed Disposition: Requires inpatient hospitalization. Full Code. Visit type - Emergency Visit Emergency Visit: Yes ED Registration Date: 06/07/16 Care time: The patient presented to the Emergency Department on the above date and was hospitalized for further evaluation of their emergent condition. - New Patient This patient is new to me today: Yes Date on this admission: 06/10/16 - Critical Care Critical Care patient: No - Discharge Referral Referred to [facility] Med P.C.: No
--- NOTE | 2016-06-10 16:00 | PN ---
Physical Exam: SUBJECTIVE: Patient seen and examined Resting in bed NAD. No acute events. afebrile and hemodynamically stable. States he feels "great". No sob, ambulating around the room, some night sweating. Cough decreased with white sputum. he denies f/c, ches pain, h/a, sweating, weight loss. OBJECTIVE: Vital Signs Period Temp Pulse Resp BP Sys/Alcaraz Pulse Ox Last 24 Hr 98.4 F-98.6 F 80-96 16-20 122-142/76-78 98 GENERAL: Awake, alert, and fully oriented, in no acute distress. HEAD: Normal with no signs of trauma. EYES: Pupils equal, round and reactive to light, extraocular movements intact, sclera anicteric, conjunctiva clear. EARS, NOSE, THROAT: Moist mucous membranes. NECK: supple without masses. LUNGS: reduced breath sounds in DAWSON HEART: Regular rate and rhythm, normal S1 and S2 ABDOMEN: Soft, nontender, not distended, normoactive bowel sounds MUSCULOSKELETAL: No CVA tenderness. UPPER EXTREMITIES: 2+ pulses, No peripheral edema. LOWER EXTREMITIES: 2+ pulses No peripheral edema. NEUROLOGICAL: Cranial nerves II-XII grossly intact. Normal speech. PSYCHIATRIC: Cooperative. Good eye contact. Appropriate mood and affect. SKIN: Warm, dry Laboratory Results - last 24 hr 06/09/16 06/09/16 06/10/16 16:53 22:38 06:00 WBC 10.0 RBC 3.75 L Hgb 11.8 Hct 34.6 L MCV 92.3 MCHC 34.2 RDW 12.8 Plt Count 414 MPV 7.5 Neutrophils % 85.5 H Lymphocytes % 7.4 L Monocytes % 7.0 Eosinophils % 0.0 Basophils % 0.1 Sodium Potassium Chloride Carbon Dioxide Anion Gap BUN Creatinine Creat Clearance w eGFR POC Glucometer 185 358 Random Glucose Calcium Phosphorus Magnesium Total Bilirubin AST ALT Alkaline Phosphatase Total Protein Albumin 06/10/16 06/10/16 06/10/16 06:00 06:35 12:04 WBC RBC Hgb Hct MCV MCHC RDW Plt Count MPV Neutrophils % Lymphocytes % Monocytes % Eosinophils % Basophils % Sodium 139 Potassium 4.5 Chloride 100 Carbon Dioxide 24 Anion Gap 15 BUN 11 Creatinine 0.9 Creat Clearance w eGFR > 60 POC Glucometer 245 303 Random Glucose 255 H Calcium 9.1 Phosphorus 3.3 Magnesium 1.9 Total Bilirubin 0.4 AST 30 ALT 47 Alkaline Phosphatase 91 Total Protein 7.4 Albumin 3.1 L Active Medications Generic Name Dose Route Start Last Admin Trade Name Davis PRN Reason Stop Dose Admin Acetaminophen 650 mg 06/07/16 23:22 06/10/16 09:40 Tylenol - PO 650 mg Q6H PRN Administration FEVER OR PAIN Albuterol/Ipratropium 1 amp 06/09/16 08:45 06/10/16 11:45 Duoneb - NEB Not Given QIDR MARYANN Amlodipine Besylate 2.5 mg 06/08/16 10:00 06/10/16 09:40 Norvasc - PO 2.5 mg DAILY MARYANN Administration Aspirin 81 mg 06/08/16 10:00 06/10/16 09:40 Asa - PO 81 mg DAILY MARYANN Administration Atorvastatin Calcium 10 mg 06/08/16 22:00 06/09/16 22:54 Lipitor - PO 10 mg HS MARYANN Administration Cholecalciferol 1,000 unit 06/08/16 10:00 06/10/16 09:40 Vitamin D3 - PO 1,000 unit BID MARYANN Administration Sodium Chloride 1,000 mls @ 50 mls/hr 06/08/16 06:30 06/10/16 06:39 Normal Saline - IV Not Given ASDIR MARYANN Ceftriaxone Sodium 100 mls @ 200 mls/hr 06/09/16 10:00 06/10/16 11:07 Rocephin 2gm Ivpb (Pre-Docked) IVPB 200 mls/hr DAILY MARYANN Administration Insulin Aspart 1 vial 06/08/16 11:00 06/10/16 12:14 Novolog Vial Sliding Scale - SQ 8 units ACHS MARYANN Administration Protocol Losartan Potassium 50 mg 06/09/16 10:00 06/10/16 09:40 Cozaar - PO 50 mg DAILY MARYANN Administration Methylprednisolone Sodium Succinate 40 mg 06/09/16 16:00 06/10/16 09:38 Solu-Medrol - IVPB 40 mg DAILY MARYANN Administration Metoprolol Succinate 50 mg/ 75 mg 06/10/16 10:00 06/10/16 09:40 Metoprolol Succinate 25 mg PO 75 mg DAILY MARYANN Administration Prasugrel 10 mg 06/08/16 10:00 06/10/16 09:38 Effient - PO 10 mg DAILY MARYANN Administration Ranitidine HCl 150 mg 06/10/16 10:00 06/10/16 09:39 Zantac - PO 150 mg DAILY MARYANN Administration Ranolazine 1,000 mg 06/08/16 10:00 06/10/16 09:39 Ranexa - PO 1,000 mg BID MARYANN Administration ASSESSMENT/PLAN: Community Acquired PNA -DAWSON -CXR DAWSON infiltrate -CT chest: nodulat DAWSON infiltrate, reactive hilar adenopathy -hemoptysis -likely strep pneumo but cant r/o TB due to risk factors -Qualnt gold p/d -sputum afb p/d -flu negative -legionella negative -blood culture negative -ID consult: rocephin and zosyn day 2 -medrol 40 d -duoneb -symptomatic improvement -isolation HTN -cozaar -norvasc HLD -lipitor DM -slidding scale CAD s/p stent, CABG -effient -asa -metoprolol Dispo: We will continue to follow the patient. Thank you for this consultative opportunity. Problem List - Problems (1) Community acquired pneumonia Code(s): J18.9 - PNEUMONIA, UNSPECIFIED ORGANISM (2) DVT prophylaxis Code(s): RDB0104 - (3) Diabetes mellitus Code(s): E11.9 - TYPE 2 DIABETES MELLITUS WITHOUT COMPLICATIONS (4) HLD (hyperlipidemia) Code(s): E78.5 - HYPERLIPIDEMIA, UNSPECIFIED (5) HTN (hypertension) Code(s): I10 - ESSENTIAL (PRIMARY) HYPERTENSION (6) Sepsis Code(s): A41.9 - SEPSIS, UNSPECIFIED ORGANISM Visit type - Emergency Visit Emergency Visit: Yes ED Registration Date: 06/07/16 Care time: The patient presented to the Emergency Department on the above date and was hospitalized for further evaluation of their emergent condition. - New Patient This patient is new to me today: No - Critical Care Critical Care patient: No - Discharge Referral Referred to [facility] Med P.C.: No
[2016-06-10] MEDS ORDERED: INSULIN (NOVOLOG) ASPART 100 UNITS/ML 10ML VIAL ONE (21:31)
[2016-06-10] MEDS: ATORVASTATIN CA 10 MG TABLET (FP) PO SCH (21:59)
[2016-06-10] MEDS: INSULIN DETEMIR 100 UNITS/ML MDV SQ SCH (21:59)
[2016-06-11] MEDS: ALBUTEROL SO4 2.5/IPRATROPIUM 0.5 INH SOL 3 ML VIAL.NEB. NEB SCH ×3 (07:08→18:48)
[2016-06-11 08:16] LABS: BASOPHIL 0.3 % (0-2.0); EOSINOPHIL 0.1 % (0-4.5); MCH 31.5 pg (25.7-33.7); MCHC 33.9 g/dl (32.0-35.9); MEAN PLT VOLUME 7.6 fl (7.5-11.1); NEUTROPHILS 82.7 % (42.8-82.8); PLATELET COUNT 377 K/MM3 (134-434); WHITE BLOOD COUNT 12.1 K/mm3 (4.0-10.0)
[2016-06-11] MEDS: INSULIN SLIDING SCALE (NOVOLOG) 1 VIAL SQ SCH ×4 (09:05→21:36)
[2016-06-11 09:21] LABS: ALBUMIN 2.5 g/dl (3.4-5.0); ALK PHOS 74 U/L (45-117); ANION GAP 9 (8-16); BILIRUBIN,TOTAL 0.3 mg/dL (0.2-1.0); CALCIUM 8.4 mg/dL (8.5-10.1); CO2 27 mmol/L (21-32); CREATININE 0.9 mg/dL (0.7-1.3); GLUCOSE,RANDOM 179 mg/dL (74-106); MAGNESIUM 1.9 mg/dL (1.8-2.4); SGOT/AST 39 U/L (15-37); SGPT/ALT 60 U/L (12-78); TOT PROT 6.1 g/dl (6.4-8.2)
[2016-06-11] MEDS ORDERED: METOPROLOL SUCCINATE 50 MG TAB.SR.24H (FP) ONE (10:27)
[2016-06-11] MEDS ORDERED: METOPROLOL SUCCINATE 25 MG TAB.SR.24H (FP) ONE (10:27)
[2016-06-11] MEDS ORDERED: ACETAMINOPHEN 500 MG TABLET (FP) ONE (10:28)
[2016-06-11] MEDS: CHOLECALCIFEROL (VITAMIN D3) 1,000 UNIT TABLET (FP) PO SCH ×2 (10:45→21:37)
[2016-06-11] MEDS: RANOLAZINE E.R. 500 MG TABLET (FP) PO SCH ×2 (10:45→21:37)
[2016-06-11] MEDS: ASPIRIN 81 MG CHEWABLE TABLETS PO SCH (10:45)
[2016-06-11] MEDS: METOPROLOL SUCCINATE 50 MG, METOPROLOL SUCCINATE 25 MG PO SCH (10:45)
[2016-06-11] MEDS: LOSARTAN POTASSIUM 50 MG TABLET (FP) PO SCH (10:45)
[2016-06-11] MEDS: ACETAMINOPHEN 325 MG TABLET (FP) PO PRN ×2 (10:45→21:37)
[2016-06-11] MEDS: RANITIDINE HCL 150 MG TABLET (FP) PO SCH (10:45)
[2016-06-11] MEDS: amLODIPine BESYLATE 2.5 MG TABLET (FP) PO SCH (10:45)
[2016-06-11] MEDS: PRASUGREL HCL 10 MG TAB PO SCH (10:48)
[2016-06-11] MEDS ORDERED: PT OWN MED DRAWER 7, Y5N ONE (10:48)
[2016-06-11] MEDS: SODIUM CHLORIDE 1,000 ML IV SCH ×2 (10:50→21:44)
[2016-06-11] MEDS: CEFTRIAXONE 100 ML IVPB SCH (10:53)
[2016-06-11] MEDS: methylPREDNISolone NA SUCC 40 MG/1 ML VIAL IVPB SCH (11:34)
--- NOTE | 2016-06-11 12:19 | PN ---
Teaching Attending Note Name of Resident: Stefany Walker ATTENDING PHYSICIAN STATEMENT I saw and evaluated the patient. I reviewed the resident's note and discussed the case with the resident. I agree with the resident's findings and plan as documented. pulmonary alert,nad,-sob,less cough ASSESSMENT AND PLAN: DAWSON CAP DM HTN HPL CAD PLAN: ABX per ID sputum AFB Quantiferon Gold pending O2 as needed Medrol Isolation Chest x-ray today DR VICTORIA Problem List - Problems (1) Community acquired pneumonia Code(s): J18.9 - PNEUMONIA, UNSPECIFIED ORGANISM (2) DVT prophylaxis Code(s): [id number] - (3) HLD (hyperlipidemia) Code(s): E78.5 - HYPERLIPIDEMIA, UNSPECIFIED (4) HTN (hypertension) Code(s): I10 - ESSENTIAL (PRIMARY) HYPERTENSION (5) Hyponatremia Code(s): E87.1 - HYPO-OSMOLALITY AND HYPONATREMIA
--- NOTE | 2016-06-11 15:49 | PN ---
Physical Exam: SUBJECTIVE: Patient seen and examined Patient resting in bed NAD. No acute events. Afebrile and hemodynamically stable. States he feels very well, denies sob. states his cough is improved, productive of clear sputum. Has been ambulating around the room, still some night sweating. Denies f/c, ches pain, h/a, sweating, weight loss. OBJECTIVE: Vital Signs Period Temp Pulse Resp BP Sys/Alcaraz Pulse Ox Last 24 Hr 98.2 F-99.2 F 84-101 18-20 115-149/66-81 95 GENERAL: Awake, alert, and fully oriented, in no acute distress. HEAD: Normal with no signs of trauma. EYES: Pupils equal, round and reactive to light, extraocular movements intact, sclera anicteric, conjunctiva clear. EARS, NOSE, THROAT: Moist mucous membranes. NECK: supple without masses. LUNGS: clearer breath sounds in DAWSON HEART: Regular rate and rhythm, normal S1 and S2 ABDOMEN: Soft, nontender, not distended, normoactive bowel sounds MUSCULOSKELETAL: No CVA tenderness. UPPER EXTREMITIES: 2+ pulses, No peripheral edema. LOWER EXTREMITIES: 2+ pulses No peripheral edema. NEUROLOGICAL: Cranial nerves II-XII grossly intact. Normal speech. PSYCHIATRIC: Cooperative. Good eye contact. Appropriate mood and affect. SKIN: Warm, dry Laboratory Results - last 24 hr 06/10/16 06/10/16 06/10/16 06:00 17:45 21:58 WBC RBC Hgb Hct MCV MCHC RDW Plt Count MPV Neutrophils % Lymphocytes % Monocytes % Eosinophils % Basophils % Sodium Potassium Chloride Carbon Dioxide Anion Gap BUN Creatinine Creat Clearance w eGFR POC Glucometer 259 327 Random Glucose Calcium Magnesium Total Bilirubin AST ALT Alkaline Phosphatase Total Protein Albumin Cortisol AM Sample 3.4 06/11/16 06/11/16 06:00 06:00 WBC 12.1 H RBC 3.17 L Hgb 10.0 L D Hct 29.5 L MCV 93.0 MCHC 33.9 RDW 13.0 Plt Count 377 MPV 7.6 Neutrophils % 82.7 Lymphocytes % 9.5 D Monocytes % 7.4 Eosinophils % 0.1 D Basophils % 0.3 Sodium 140 Potassium 4.1 Chloride 104 Carbon Dioxide 27 Anion Gap 9 BUN 18 D Creatinine 0.9 Creat Clearance w eGFR > 60 POC Glucometer Random Glucose 179 H D Calcium 8.4 L Magnesium 1.9 Total Bilirubin 0.3 D AST 39 H D ALT 60 D Alkaline Phosphatase 74 Total Protein 6.1 L Albumin 2.5 L Cortisol AM Sample Active Medications Generic Name Dose Route Start Last Admin Trade Name Freq PRN Reason Stop Dose Admin Acetaminophen 650 mg 06/07/16 23:22 06/11/16 10:45 Tylenol - PO 650 mg Q6H PRN Administration FEVER OR PAIN Albuterol/Ipratropium 1 amp 06/09/16 08:45 06/11/16 12:51 Duoneb - NEB 1 amp QIDR MARYANN Administration Amlodipine Besylate 2.5 mg 06/08/16 10:00 06/11/16 10:45 Norvasc - PO 2.5 mg DAILY MARYANN Administration Aspirin 81 mg 06/08/16 10:00 06/11/16 10:45 Asa - PO 81 mg DAILY MARYANN Administration Atorvastatin Calcium 10 mg 06/08/16 22:00 06/10/16 21:59 Lipitor - PO 10 mg HS MARYANN Administration Cholecalciferol 1,000 unit 06/08/16 10:00 06/11/16 10:45 Vitamin D3 - PO 1,000 unit BID MARYANN Administration Sodium Chloride 1,000 mls @ 50 mls/hr 06/08/16 06:30 06/11/16 10:50 Normal Saline - IV 50 mls/hr ASDIR MARYANN Administration Ceftriaxone Sodium 100 mls @ 200 mls/hr 06/09/16 10:00 06/11/16 10:53 Rocephin 2gm Ivpb (Pre-Docked) IVPB 200 mls/hr DAILY MARYANN Administration Insulin Aspart 1 vial 06/08/16 11:00 06/11/16 10:46 Novolog Vial Sliding Scale - SQ 8 units ACHS MARYANN Administration Protocol Insulin Detemir 5 units 06/10/16 22:00 06/10/16 21:59 Levemir Vial SQ 5 units HS MARYANN Administration Losartan Potassium 50 mg 06/09/16 10:00 06/11/16 10:45 Cozaar - PO 50 mg DAILY MARYANN Administration Methylprednisolone Sodium Succinate 40 mg 06/09/16 16:00 06/11/16 11:34 Solu-Medrol - IVPB 40 mg DAILY MARYANN Administration Metoprolol Succinate 50 mg/ 75 mg 06/10/16 10:00 06/11/16 10:45 Metoprolol Succinate 25 mg PO 75 mg DAILY MARYANN Administration Prasugrel 10 mg 06/08/16 10:00 06/11/16 10:48 Effient - PO 10 mg DAILY MARYANN Administration Ranitidine HCl 150 mg 06/10/16 10:00 06/11/16 10:45 Zantac - PO 150 mg DAILY MARYANN Administration Ranolazine 1,000 mg 06/08/16 10:00 06/11/16 10:45 Ranexa - PO 1,000 mg BID MARYANN Administration ASSESSMENT/PLAN: Community Acquired PNA -DAWSON -CXR DAWSON infiltrate -CT chest: nodulat DAWSON infiltrate, reactive hilar adenopathy -hemoptysis -likely strep pneumo but cant r/o TB due to risk factors -Qualnt gold p/d -sputum afb p/d -flu negative -legionella negative -blood culture negative -ID consult: rocephin day 3 -medrol 40 d day 3 -duoneb -symptomatic improvement -isolation HTN -cozaar -norvasc HLD -lipitor DM -slidding scale CAD s/p stent, CABG -effient -asa -metoprolol Dispo: We will continue to follow the patient. Thank you for this consultative opportunity. Problem List - Problems (1) Community acquired pneumonia Code(s): J18.9 - PNEUMONIA, UNSPECIFIED ORGANISM (2) DVT prophylaxis Code(s): JMP1325 - (3) Diabetes mellitus Code(s): E11.9 - TYPE 2 DIABETES MELLITUS WITHOUT COMPLICATIONS (4) HLD (hyperlipidemia) Code(s): E78.5 - HYPERLIPIDEMIA, UNSPECIFIED (5) HTN (hypertension) Code(s): I10 - ESSENTIAL (PRIMARY) HYPERTENSION (6) Sepsis Code(s): A41.9 - SEPSIS, UNSPECIFIED ORGANISM Visit type - Emergency Visit Emergency Visit: Yes ED Registration Date: 06/07/16 Care time: The patient presented to the Emergency Department on the above date and was hospitalized for further evaluation of their emergent condition. - New Patient This patient is new to me today: No - Critical Care Critical Care patient: No - Discharge Referral Referred to [facility] No
--- NOTE | 2016-06-11 16:56 | PN ---
Physical Exam: SUBJECTIVE: Patient seen and examined OBJECTIVE: Vital Signs Period Temp Pulse Resp BP Sys/Alcaraz Pulse Ox Last 24 Hr 98.2 F-99.2 F 84-101 18-20 115-149/66-81 94-95 GENERAL: The patient is awake, alert, and fully oriented, in no acute distress. HEAD: Normal with no signs of trauma. EYES: PERRL, extraocular movements intact, sclera anicteric, conjunctiva clear. No ptosis. ENT: Ears normal, nares patent, oropharynx clear without exudates, moist mucous membranes. NECK: Trachea midline, full range of motion, supple. LUNGS: Breath sounds equal, clear to auscultation bilaterally, no wheezes, no crackles, no accessory muscle use. HEART: Regular rate and rhythm, S1, S2 without murmur, rub or gallop. ABDOMEN: Soft, nontender, nondistended, normoactive bowel sounds, no guarding, no rebound, no hepatosplenomegaly, no masses. EXTREMITIES: 2+ pulses, warm, well-perfused, no edema. NEUROLOGICAL: Cranial nerves II through XII grossly intact. Normal speech, gait not observed. PSYCH: Normal mood, normal affect. SKIN: Warm, dry, normal turgor, no rashes or lesions noted Laboratory Results - last 24 hr 06/10/16 06/10/16 06/10/16 06:00 17:45 21:58 WBC RBC Hgb Hct MCV MCHC RDW Plt Count MPV Neutrophils % Lymphocytes % Monocytes % Eosinophils % Basophils % Sodium Potassium Chloride Carbon Dioxide Anion Gap BUN Creatinine Creat Clearance w eGFR POC Glucometer 259 327 Random Glucose Calcium Magnesium Total Bilirubin AST ALT Alkaline Phosphatase Total Protein Albumin Cortisol AM Sample 3.4 06/11/16 06/11/16 06:00 06:00 WBC 12.1 H RBC 3.17 L Hgb 10.0 L D Hct 29.5 L MCV 93.0 MCHC 33.9 RDW 13.0 Plt Count 377 MPV 7.6 Neutrophils % 82.7 Lymphocytes % 9.5 D Monocytes % 7.4 Eosinophils % 0.1 D Basophils % 0.3 Sodium 140 Potassium 4.1 Chloride 104 Carbon Dioxide 27 Anion Gap 9 BUN 18 D Creatinine 0.9 Creat Clearance w eGFR > 60 POC Glucometer Random Glucose 179 H D Calcium 8.4 L Magnesium 1.9 Total Bilirubin 0.3 D AST 39 H D ALT 60 D Alkaline Phosphatase 74 Total Protein 6.1 L Albumin 2.5 L Cortisol AM Sample Active Medications Generic Name Dose Route Start Last Admin Trade Name Davis PRN Reason Stop Dose Admin Acetaminophen 650 mg 06/07/16 23:22 06/11/16 10:45 Tylenol - PO 650 mg Q6H PRN Administration FEVER OR PAIN Albuterol/Ipratropium 1 amp 06/09/16 08:45 06/11/16 12:51 Duoneb - NEB 1 amp QIDR MARYANN Administration Amlodipine Besylate 2.5 mg 06/08/16 10:00 06/11/16 10:45 Norvasc - PO 2.5 mg DAILY MARYANN Administration Aspirin 81 mg 06/08/16 10:00 06/11/16 10:45 Asa - PO 81 mg DAILY MARYANN Administration Atorvastatin Calcium 10 mg 06/08/16 22:00 06/10/16 21:59 Lipitor - PO 10 mg HS MARYANN Administration Cholecalciferol 1,000 unit 06/08/16 10:00 06/11/16 10:45 Vitamin D3 - PO 1,000 unit BID MARYANN Administration Sodium Chloride 1,000 mls @ 50 mls/hr 06/08/16 06:30 06/11/16 10:50 Normal Saline - IV 50 mls/hr ASDIR MARYANN Administration Ceftriaxone Sodium 100 mls @ 200 mls/hr 06/09/16 10:00 06/11/16 10:53 Rocephin 2gm Ivpb (Pre-Docked) IVPB 200 mls/hr DAILY MARYANN Administration Insulin Aspart 1 vial 06/08/16 11:00 06/11/16 10:46 Novolog Vial Sliding Scale - SQ 8 units ACHS MARYANN Administration Protocol Insulin Detemir 5 units 06/10/16 22:00 06/10/16 21:59 Levemir Vial SQ 5 units HS MARYANN Administration Losartan Potassium 50 mg 06/09/16 10:00 06/11/16 10:45 Cozaar - PO 50 mg DAILY MARYANN Administration Methylprednisolone Sodium Succinate 40 mg 06/09/16 16:00 06/11/16 11:34 Solu-Medrol - IVPB 40 mg DAILY MARYANN Administration Metoprolol Succinate 50 mg/ 75 mg 06/10/16 10:00 06/11/16 10:45 Metoprolol Succinate 25 mg PO 75 mg DAILY MARYANN Administration Prasugrel 10 mg 06/08/16 10:00 06/11/16 10:48 Effient - PO 10 mg DAILY MARYANN Administration Ranitidine HCl 150 mg 06/10/16 10:00 06/11/16 10:45 Zantac - PO 150 mg DAILY MARYANN Administration Ranolazine 1,000 mg 06/08/16 10:00 06/11/16 10:45 Ranexa - PO 1,000 mg BID MARYANN Administration ASSESSMENT/PLAN: 70 year old male with a significant PMH of HTN, HLD, CAD s/p stents x 4 s/p CABG x 4. Admitted for sepsis secondary to pneumonia. r/o TB. Sepsis likely secondary to Pneumonia Blood-tinged sputum --CXR: DAWSON infiltrate --continue ceftriaxone (day #3) --Quant gold pending; AFB pending Hypertension --continue losartan and amlodipine Hyperlipidemia --continue Lipitor CAD s/p stents s/p CABG --continue ASA, Effient, metoprolol, Ranexa NIDDM --Levemire 5U qhs --Novolog sliding scale F/E/N Fluids: NS @50cc/hr Electrolytes: replete as indicated Nutrition: regular diet DVT prophylaxis: ambulatory patient, SCDs in bed Disposition: continues to require inpatient hospitalization. Full Code. Visit type - Emergency Visit Emergency Visit: Yes ED Registration Date: 06/07/16 Care time: The patient presented to the Emergency Department on the above date and was hospitalized for further evaluation of their emergent condition. - New Patient This patient is new to me today: Yes Date on this admission: 06/19/16 - Critical Care Critical Care patient: No
--- NOTE | 2016-06-11 18:49 | PN ---
Progress Note, Physician History of Present Illness: Feeling better Less cough / sputum production No fever/ chills No c/o dyspnea/ chst pain - Current Medication List Current Medications: Active Medications Acetaminophen (Tylenol -) 650 mg PO Q6H PRN PRN Reason: FEVER OR PAIN Last Admin: 06/11/16 10:45 Dose: 650 mg Albuterol/Ipratropium (Duoneb -) 1 amp NEB QIDR [facility] Last Admin: 06/11/16 18:48 Dose: 1 amp Amlodipine Besylate (Norvasc -) 2.5 mg PO DAILY [facility] Last Admin: 06/11/16 10:45 Dose: 2.5 mg Aspirin (Asa -) 81 mg PO DAILY [facility] Last Admin: 06/11/16 10:45 Dose: 81 mg Atorvastatin Calcium (Lipitor -) 10 mg PO HS [facility] Last Admin: 06/10/16 21:59 Dose: 10 mg Cholecalciferol (Vitamin D3 -) 1,000 unit PO BID [facility] Last Admin: 06/11/16 10:45 Dose: 1,000 unit Sodium Chloride (Normal Saline -) 1,000 mls @ 50 mls/hr IV ASDIR [facility] Last Admin: 06/11/16 10:50 Dose: 50 mls/hr Ceftriaxone Sodium (Rocephin 2gm Ivpb (Pre-Docked)) 100 mls @ 200 mls/hr IVPB DAILY [facility] Last Admin: 06/11/16 10:53 Dose: 200 mls/hr Insulin Aspart (Novolog Vial Sliding Scale -) 1 vial SQ ACHS [facility] PRN Reason: Protocol Last Admin: 06/11/16 18:11 Dose: 8 units Insulin Detemir (Levemir Vial) 5 units SQ HS [facility] Last Admin: 06/10/16 21:59 Dose: 5 units Losartan Potassium (Cozaar -) 50 mg PO DAILY [facility] Last Admin: 06/11/16 10:45 Dose: 50 mg Methylprednisolone Sodium Succinate (Solu-Medrol -) 40 mg IVPB DAILY [facility] Last Admin: 06/11/16 11:34 Dose: 40 mg Metoprolol Succinate 50 mg/ (Metoprolol Succinate 25 mg) 75 mg PO DAILY [facility] Last Admin: 06/11/16 10:45 Dose: 75 mg Prasugrel (Effient -) 10 mg PO DAILY [facility] Last Admin: 06/11/16 10:48 Dose: 10 mg Ranitidine HCl (Zantac -) 150 mg PO DAILY [facility] Last Admin: 06/11/16 10:45 Dose: 150 mg Ranolazine (Ranexa -) 1,000 mg PO BID [facility] Last Admin: 06/11/16 10:45 Dose: 1,000 mg - Objective Vital Signs: Vital Signs Temperature 98.2 F 06/11/16 17:04 Pulse Rate 86 06/11/16 17:04 Respiratory Rate 20 06/11/16 17:04 Blood Pressure 125/75 06/11/16 17:04 O2 Sat by Pulse Oximetry (%) 94 L 06/11/16 09:00 Constitutional: Yes: No Distress Cardiovascular: Yes: Regular Rate and Rhythm, S1, S2 Respiratory: Yes: CTA Bilaterally Gastrointestinal: Yes: Normal Bowel Sounds, Soft Edema: No Labs: CBC, BMP 06/11/16 06:00 06/11/16 06:00 INR, PTT INR 1.21 (0.82-1.09) 06/09/16 07:50 Assessment/Plan DAWSON infiltrate possible AFB disease v. community acquired/ atypical S/P hemoptysis Hyponatremia- resolved await sputum AFB, sputum c/s Continue empiric ceftriaxone
[2016-06-11] MEDS: INSULIN DETEMIR 100 UNITS/ML MDV SQ SCH (21:36)
[2016-06-11] MEDS: ATORVASTATIN CA 10 MG TABLET (FP) PO SCH (21:37)
[2016-06-12] MEDS: ALBUTEROL SO4 2.5/IPRATROPIUM 0.5 INH SOL 3 ML VIAL.NEB. NEB SCH ×5 (00:26→23:07)
[2016-06-12] MEDS: SODIUM CHLORIDE 1,000 ML IV SCH (06:19)
[2016-06-12] MEDS: INSULIN SLIDING SCALE (NOVOLOG) 1 VIAL SQ SCH ×4 (06:19→22:28)
[2016-06-12] MEDS ORDERED: METOPROLOL SUCCINATE 50 MG TAB.SR.24H (FP) ONE (08:39)
[2016-06-12] MEDS ORDERED: METOPROLOL SUCCINATE 25 MG TAB.SR.24H (FP) ONE (08:39)
--- NOTE | 2016-06-12 09:30 | PN ---
Progress Note (short form) - Note Progress Note: Overall continues to feel better. Mild residual cough. No hemoptysis. Quant Gold : Indeterminate All 3 AFB are pending Intake & Output 06/09/16 06/10/16 06/11/16 06/12/16 23:59 23:59 23:59 23:59 Intake Total 1675 1150 900 800 Balance 1675 1150 900 800 Last Vital Signs Temp Pulse Resp BP Pulse Ox 97.9 F 90 18 145/82 94 L 06/12/16 06:00 06/12/16 06:00 06/12/16 06:00 06/12/16 06:00 06/11/16 21:00 Active Medications Acetaminophen (Tylenol -) 650 mg PO Q6H PRN PRN Reason: FEVER OR PAIN Last Admin: 06/11/16 21:37 Dose: 650 mg Albuterol/Ipratropium (Duoneb -) 1 amp NEB QIDR [facility] Last Admin: 06/12/16 05:56 Dose: 1 amp Amlodipine Besylate (Norvasc -) 2.5 mg PO DAILY [facility] Last Admin: 06/11/16 10:45 Dose: 2.5 mg Aspirin (Asa -) 81 mg PO DAILY [facility] Last Admin: 06/11/16 10:45 Dose: 81 mg Atorvastatin Calcium (Lipitor -) 10 mg PO HS [facility] Last Admin: 06/11/16 21:37 Dose: 10 mg Cholecalciferol (Vitamin D3 -) 1,000 unit PO BID [facility] Last Admin: 06/11/16 21:37 Dose: 1,000 unit Sodium Chloride (Normal Saline -) 1,000 mls @ 50 mls/hr IV ASDIR [facility] Last Admin: 06/12/16 06:19 Dose: Not Given Ceftriaxone Sodium (Rocephin 2gm Ivpb (Pre-Docked)) 100 mls @ 200 mls/hr IVPB DAILY [facility] Last Admin: 06/11/16 10:53 Dose: 200 mls/hr Insulin Aspart (Novolog Vial Sliding Scale -) 1 vial SQ ACHS [facility] PRN Reason: Protocol Last Admin: 06/12/16 06:19 Dose: 2 units Insulin Detemir (Levemir Vial) 5 units SQ HS [facility] Last Admin: 06/11/16 21:36 Dose: 5 units Losartan Potassium (Cozaar -) 50 mg PO DAILY [facility] Last Admin: 06/11/16 10:45 Dose: 50 mg Methylprednisolone Sodium Succinate (Solu-Medrol -) 40 mg IVPB DAILY [facility] Last Admin: 06/11/16 11:34 Dose: 40 mg Metoprolol Succinate 50 mg/ (Metoprolol Succinate 25 mg) 75 mg PO DAILY [facility] Last Admin: 06/11/16 10:45 Dose: 75 mg Prasugrel (Effient -) 10 mg PO DAILY [facility] Last Admin: 06/11/16 10:48 Dose: 10 mg Ranitidine HCl (Zantac -) 150 mg PO DAILY [facility] Last Admin: 06/11/16 10:45 Dose: 150 mg Ranolazine (Ranexa -) 1,000 mg PO BID [facility] Last Admin: 06/11/16 21:37 Dose: 1,000 mg GENERAL: NAD HEAD: Normal with no signs of trauma. EYES: sclera anicteric, conjunctiva clear EARS, NOSE, THROAT: oropharynx clear without exudates. NECK: Normal range of motion, supple without lymphadenopathy, JVD, or masses. LUNGS: Few scattered rhonchi. No wheeze. No accessory muscle use. HEART: Regular rate and rhythm, normal S1 and S2 ABDOMEN: Soft, nontender, not distended, (+) BS bowel sounds MUSCULOSKELETAL: Normal range of motion at all joints. No bony deformities or tenderness. No CVA tenderness. UPPER EXTREMITIES: 2+ pulses, warm, well-perfused. No cyanosis. No clubbing. Cap refill <2 seconds. No peripheral edema. LOWER EXTREMITIES: 2+ pulses, warm, well-perfused. No calf tenderness. No peripheral edema. NEUROLOGICAL: non-focal PSYCHIATRIC: Appropriate mood and affect. SKIN: Warm, dry, normal turgor, no rashes or lesions noted. ASSESSMENT AND PLAN: DAWSON CAP DM HTN HPL CAD PLAN: ABX per ID Follow sputums O2 as needed Daily Medrol -> can D/C after dose tomorrow Isolation Will need follow up imaging in [address] Cornejo
[2016-06-12] MEDS: CEFTRIAXONE 100 ML IVPB SCH (09:47)
[2016-06-12] MEDS: amLODIPine BESYLATE 2.5 MG TABLET (FP) PO SCH (09:48)
[2016-06-12] MEDS: methylPREDNISolone NA SUCC 40 MG/1 ML VIAL IVPB SCH (09:48)
[2016-06-12] MEDS: METOPROLOL SUCCINATE 50 MG, METOPROLOL SUCCINATE 25 MG PO SCH (09:48)
[2016-06-12] MEDS: LOSARTAN POTASSIUM 50 MG TABLET (FP) PO SCH (09:48)
[2016-06-12] MEDS: RANOLAZINE E.R. 500 MG TABLET (FP) PO SCH ×2 (09:49→21:27)
[2016-06-12] MEDS: ASPIRIN 81 MG CHEWABLE TABLETS PO SCH (09:49)
[2016-06-12] MEDS: RANITIDINE HCL 150 MG TABLET (FP) PO SCH (09:49)
[2016-06-12] MEDS: CHOLECALCIFEROL (VITAMIN D3) 1,000 UNIT TABLET (FP) PO SCH ×2 (09:49→21:27)
[2016-06-12] MEDS ORDERED: PT OWN MED DRAWER 7, Y5N ONE (09:58)
[2016-06-12] MEDS: PRASUGREL HCL 10 MG TAB PO SCH (10:14)
[2016-06-12] MEDS: ACETAMINOPHEN 325 MG TABLET (FP) PO PRN (10:15)
--- NOTE | 2016-06-12 11:47 | PN ---
Progress Note, Physician History of Present Illness: Feels "92%" better Occasional cough; denies sputum/ hemoptysis No c/o fever/ chills - Current Medication List Current Medications: Active Medications Acetaminophen (Tylenol -) 650 mg PO Q6H PRN PRN Reason: FEVER OR PAIN Last Admin: 06/12/16 10:15 Dose: 650 mg Albuterol/Ipratropium (Duoneb -) 1 amp NEB QIDR [facility] Last Admin: 06/12/16 05:56 Dose: 1 amp Amlodipine Besylate (Norvasc -) 2.5 mg PO DAILY [facility] Last Admin: 06/12/16 09:48 Dose: 2.5 mg Aspirin (Asa -) 81 mg PO DAILY [facility] Last Admin: 06/12/16 09:49 Dose: 81 mg Atorvastatin Calcium (Lipitor -) 10 mg PO HS [facility] Last Admin: 06/11/16 21:37 Dose: 10 mg Cholecalciferol (Vitamin D3 -) 1,000 unit PO BID [facility] Last Admin: 06/12/16 09:49 Dose: 1,000 unit Sodium Chloride (Normal Saline -) 1,000 mls @ 50 mls/hr IV ASDIR [facility] Last Admin: 06/12/16 06:19 Dose: Not Given Ceftriaxone Sodium (Rocephin 2gm Ivpb (Pre-Docked)) 100 mls @ 200 mls/hr IVPB DAILY [facility] Last Admin: 06/12/16 09:47 Dose: 200 mls/hr Insulin Aspart (Novolog Vial Sliding Scale -) 1 vial SQ ACHS [facility] PRN Reason: Protocol Last Admin: 06/12/16 06:19 Dose: 2 units Insulin Detemir (Levemir Vial) 5 units SQ HS [facility] Last Admin: 06/11/16 21:36 Dose: 5 units Losartan Potassium (Cozaar -) 50 mg PO DAILY [facility] Last Admin: 06/12/16 09:48 Dose: 50 mg Methylprednisolone Sodium Succinate (Solu-Medrol -) 40 mg IVPB DAILY [facility] Last Admin: 06/12/16 09:48 Dose: 40 mg Metoprolol Succinate 50 mg/ (Metoprolol Succinate 25 mg) 75 mg PO DAILY [facility] Last Admin: 06/12/16 09:48 Dose: 75 mg Prasugrel (Effient -) 10 mg PO DAILY [facility] Last Admin: 03/09/17 10:14 Dose: 10 mg Ranitidine HCl (Zantac -) 150 mg PO DAILY [facility] Last Admin: 06/12/16 09:49 Dose: 150 mg Ranolazine (Ranexa -) 1,000 mg PO BID [facility] Last Admin: 06/12/16 09:49 Dose: 1,000 mg - Objective Vital Signs: Vital Signs Temperature 98.9 F 06/12/16 10:00 Pulse Rate 109 H 06/12/16 10:00 Respiratory Rate 20 06/12/16 10:00 Blood Pressure 151/80 06/12/16 10:00 O2 Sat by Pulse Oximetry (%) 94 L 06/11/16 21:00 Constitutional: Yes: No Distress Eyes: Yes: Conjunctiva Clear Cardiovascular: Yes: Regular Rate and Rhythm, S1, S2 Respiratory: Yes: Rhonchi Gastrointestinal: Yes: Normal Bowel Sounds, Soft. No: Tenderness Edema: No Labs: CBC, BMP 06/11/16 06:00 06/11/16 06:00 INR, PTT INR 1.21 (0.82-1.09) 06/09/16 07:50 Assessment/Plan DAWSON infiltrate possible AFB disease v. community acquired/ atypical AFB smear / PCR (-) x2 S/P hemoptysis Hyponatremia- resolved Continue empiric ceftriaxone If 3rd AFB (-) D/C isolation
--- NOTE | 2016-06-12 15:15 | PN ---
Physical Exam: SUBJECTIVE: Patient seen and examined Patient resting in bed NAD. No acute events. Afebrile and hemodynamically stable. He feels well, denies sob. Cough continues to improve, productive of clear sputum. Has been ambulating around the room, still some night sweating. Denies f/c, ches pain, h/a, sweating, weight loss. OBJECTIVE: Vital Signs Period Temp Pulse Resp BP Sys/Alcaraz Pulse Ox Last 24 Hr 97.9 F-98.9 F 84-109 18-20 125-151/75-82 94 GENERAL: Awake, alert, and fully oriented, in no acute distress. HEAD: Normal with no signs of trauma. EYES: Pupils equal, round and reactive to light, extraocular movements intact, sclera anicteric, conjunctiva clear. EARS, NOSE, THROAT: Moist mucous membranes. NECK: supple without masses. LUNGS: clearer breath sounds in DAWSON HEART: Regular rate and rhythm, normal S1 and S2 ABDOMEN: Soft, nontender, not distended, normoactive bowel sounds MUSCULOSKELETAL: No CVA tenderness. UPPER EXTREMITIES: 2+ pulses, No peripheral edema. LOWER EXTREMITIES: 2+ pulses No peripheral edema. NEUROLOGICAL: Cranial nerves II-XII grossly intact. Normal speech. PSYCHIATRIC: Cooperative. Good eye contact. Appropriate mood and affect. SKIN: Warm, dry Laboratory Results - last 24 hr 06/11/16 06/11/16 06/11/16 10:37 18:09 21:34 POC Glucometer 326 313 327 06/12/16 06/12/16 06:18 12:00 POC Glucometer 200 283 Active Medications Generic Name Dose Route Start Last Admin Trade Name Freq PRN Reason Stop Dose Admin Acetaminophen 650 mg 06/07/16 23:22 06/12/16 10:15 Tylenol - PO 650 mg Q6H PRN Administration FEVER OR PAIN Albuterol/Ipratropium 1 amp 06/09/16 08:45 06/12/16 12:05 Duoneb - NEB 1 amp QIDR MARYANN Administration Amlodipine Besylate 2.5 mg 06/08/16 10:00 06/12/16 09:48 Norvasc - PO 2.5 mg DAILY MARYANN Administration Aspirin 81 mg 06/08/16 10:00 06/12/16 09:49 Asa - PO 81 mg DAILY MARYANN Administration Atorvastatin Calcium 10 mg 06/08/16 22:00 06/11/16 21:37 Lipitor - PO 10 mg HS MARYANN Administration Cholecalciferol 1,000 unit 06/08/16 10:00 06/12/16 09:49 Vitamin D3 - PO 1,000 unit BID MARYANN Administration Sodium Chloride 1,000 mls @ 50 mls/hr 06/08/16 06:30 06/12/16 06:19 Normal Saline - IV Not Given ASDIR MARYANN Ceftriaxone Sodium 100 mls @ 200 mls/hr 06/09/16 10:00 06/12/16 09:47 Rocephin 2gm Ivpb (Pre-Docked) IVPB 200 mls/hr DAILY MARYANN Administration Insulin Aspart 1 vial 06/08/16 11:00 06/12/16 12:11 Novolog Vial Sliding Scale - SQ 6 units ACHS MARYANN Administration Protocol Insulin Detemir 5 units 06/10/16 22:00 06/11/16 21:36 Levemir Vial SQ 5 units HS MARYANN Administration Losartan Potassium 50 mg 06/09/16 10:00 06/12/16 09:48 Cozaar - PO 50 mg DAILY MARYANN Administration Methylprednisolone Sodium Succinate 40 mg 06/09/16 16:00 06/12/16 09:48 Solu-Medrol - IVPB 40 mg DAILY MARYANN Administration Metoprolol Succinate 50 mg/ 75 mg 06/10/16 10:00 06/12/16 09:48 Metoprolol Succinate 25 mg PO 75 mg DAILY MARYANN Administration Prasugrel 10 mg 06/08/16 10:00 06/12/16 10:14 Effient - PO 10 mg DAILY MARYANN Administration Ranitidine HCl 150 mg 06/10/16 10:00 06/12/16 09:49 Zantac - PO 150 mg DAILY MARYANN Administration Ranolazine 1,000 mg 06/08/16 10:00 06/12/16 09:49 Ranexa - PO 1,000 mg BID MARYANN Administration ASSESSMENT/PLAN: Community Acquired PNA -DAWSON -CXR DAWSON infiltrate -CT chest: nodulat DAWSON infiltrate, reactive hilar adenopathy -hemoptysis -repeat cxr yesterday better -likely strep pneumo but cant r/o TB due to risk factors -Qualnt gold indeterminate -sputum afb negative x 2 -flu negative -legionella negative -blood culture negative -ID consult: rocephin day 4 -medrol 40 d day 4 -duoneb -symptomatic improvement -isolation -stable for d/c tomorrow after third negative AFB HTN -cozaar -norvasc HLD -lipitor DM -slidding scale CAD s/p stent, CABG -effient -asa -metoprolol Dispo: We will continue to follow the patient. Thank you for this consultative opportunity. Problem List - Problems (1) Community acquired pneumonia Code(s): J18.9 - PNEUMONIA, UNSPECIFIED ORGANISM (2) DVT prophylaxis Code(s): UEN4810 - (3) Diabetes mellitus Code(s): E11.9 - TYPE 2 DIABETES MELLITUS WITHOUT COMPLICATIONS (4) HLD (hyperlipidemia) Code(s): E78.5 - HYPERLIPIDEMIA, UNSPECIFIED (5) HTN (hypertension) Code(s): I10 - ESSENTIAL (PRIMARY) HYPERTENSION (6) Sepsis Code(s): A41.9 - SEPSIS, UNSPECIFIED ORGANISM Visit type - Emergency Visit Emergency Visit: Yes ED Registration Date: 06/07/16 Care time: The patient presented to the Emergency Department on the above date and was hospitalized for further evaluation of their emergent condition. - New Patient This patient is new to me today: No - Critical Care Critical Care patient: No - Discharge Referral Referred to [facility] Med P.C.: No
--- NOTE | 2016-06-12 19:17 | PN ---
Physical Exam: SUBJECTIVE: Patient seen and examined OBJECTIVE: Vital Signs Period Temp Pulse Resp BP Sys/Alcaraz Pulse Ox Last 24 Hr 97.9 F-98.9 F 84-109 18-20 142-161/75-86 94 GENERAL: The patient is awake, alert, and fully oriented, in no acute distress. HEAD: Normal with no signs of trauma. EYES: PERRL, extraocular movements intact, sclera anicteric, conjunctiva clear. No ptosis. ENT: Ears normal, nares patent, oropharynx clear without exudates, moist mucous membranes. NECK: Trachea midline, full range of motion, supple. LUNGS: Breath sounds equal, clear to auscultation bilaterally, no wheezes, no crackles, no accessory muscle use. HEART: Regular rate and rhythm, S1, S2 without murmur, rub or gallop. ABDOMEN: Soft, nontender, nondistended, normoactive bowel sounds, no guarding, no rebound, no hepatosplenomegaly, no masses. EXTREMITIES: 2+ pulses, warm, well-perfused, no edema. NEUROLOGICAL: Cranial nerves II through XII grossly intact. Normal speech, gait not observed. PSYCH: Normal mood, normal affect. SKIN: Warm, dry, normal turgor, no rashes or lesions noted Laboratory Results - last 24 hr 06/11/16 06/11/16 06/11/16 10:37 18:09 21:34 POC Glucometer 326 313 327 06/12/16 06/12/16 06/12/16 06:18 12:00 17:51 POC Glucometer 200 283 266 Active Medications Generic Name Dose Route Start Last Admin Trade Name Neymarq PRN Reason Stop Dose Admin Acetaminophen 650 mg 06/07/16 23:22 06/12/16 10:15 Tylenol - PO 650 mg Q6H PRN Administration FEVER OR PAIN Albuterol/Ipratropium 1 amp 06/09/16 08:45 06/12/16 18:25 Duoneb - NEB Not Given QIDR MARYANN Amlodipine Besylate 2.5 mg 06/08/16 10:00 06/12/16 09:48 Norvasc - PO 2.5 mg DAILY MARYANN Administration Aspirin 81 mg 06/08/16 10:00 06/12/16 09:49 Asa - PO 81 mg DAILY MARYANN Administration Atorvastatin Calcium 10 mg 06/08/16 22:00 06/11/16 21:37 Lipitor - PO 10 mg HS MARYANN Administration Cholecalciferol 1,000 unit 06/08/16 10:00 06/12/16 09:49 Vitamin D3 - PO 1,000 unit BID MARYANN Administration Sodium Chloride 1,000 mls @ 50 mls/hr 06/08/16 06:30 06/12/16 06:19 Normal Saline - IV Not Given ASDIR MARYANN Ceftriaxone Sodium 100 mls @ 200 mls/hr 06/09/16 10:00 06/12/16 09:47 Rocephin 2gm Ivpb (Pre-Docked) IVPB 200 mls/hr DAILY MARYANN Administration Insulin Aspart 1 vial 06/08/16 11:00 06/12/16 18:12 Novolog Vial Sliding Scale - SQ 6 units ACHS MARYANN Administration Protocol Insulin Detemir 5 units 06/10/16 22:00 06/11/16 21:36 Levemir Vial SQ 5 units HS MARYANN Administration Losartan Potassium 50 mg 06/09/16 10:00 06/12/16 09:48 Cozaar - PO 50 mg DAILY MARYANN Administration Methylprednisolone Sodium Succinate 40 mg 06/09/16 16:00 06/12/16 09:48 Solu-Medrol - IVPB 40 mg DAILY MARYANN Administration Metoprolol Succinate 50 mg/ 75 mg 06/10/16 10:00 06/12/16 09:48 Metoprolol Succinate 25 mg PO 75 mg DAILY MARYANN Administration Prasugrel 10 mg 06/08/16 10:00 06/12/16 10:14 Effient - PO 10 mg DAILY MARYANN Administration Ranitidine HCl 150 mg 06/10/16 10:00 06/12/16 09:49 Zantac - PO 150 mg DAILY MARYANN Administration Ranolazine 1,000 mg 06/08/16 10:00 06/12/16 09:49 Ranexa - PO 1,000 mg BID MARYANN Administration ASSESSMENT/PLAN: 70 year old male with a significant PMH of HTN, HLD, CAD s/p stents x 4 s/p CABG x 4. Admitted for sepsis secondary to pneumonia. r/o TB. Sepsis likely secondary to Pneumonia Blood-tinged sputum --CXR: DAWSON infiltrate --continue ceftriaxone (day #3) --Quant gold pending; AFB pending Hypertension --continue losartan and amlodipine Hyperlipidemia --continue Lipitor CAD s/p stents s/p CABG --continue ASA, Effient, metoprolol, Ranexa NIDDM --Levemire 5U qhs --Novolog sliding scale F/E/N Fluids: NS @50cc/hr Electrolytes: replete as indicated Nutrition: regular diet DVT prophylaxis: ambulatory patient, SCDs in bed Disposition: continues to require inpatient hospitalization. Full Code. Visit type - Emergency Visit Emergency Visit: Yes ED Registration Date: 06/07/16 Care time: The patient presented to the Emergency Department on the above date and was hospitalized for further evaluation of their emergent condition. - New Patient This patient is new to me today: No - Critical Care Critical Care patient: No
[2016-06-12] MEDS: ATORVASTATIN CA 10 MG TABLET (FP) PO SCH (21:27)
[2016-06-12] MEDS: INSULIN DETEMIR 100 UNITS/ML MDV SQ SCH (22:28)
[2016-06-13] MEDS: INSULIN SLIDING SCALE (NOVOLOG) 1 VIAL SQ SCH ×2 (06:21→12:14)
[2016-06-13] MEDS: ALBUTEROL SO4 2.5/IPRATROPIUM 0.5 INH SOL 3 ML VIAL.NEB. NEB SCH ×2 (06:40→12:20)
[2016-06-13 08:05] LABS: MCH 31.6 pg (25.7-33.7); MEAN CELL VOLUME 93.1 fl (80-96); MEAN PLT VOLUME 7.3 fl (7.5-11.1); PLATELET COUNT 470 K/MM3 (134-434); RDW 12.9 % (11.9-15.9)
[2016-06-13] MEDS ORDERED: METOPROLOL SUCCINATE 50 MG TAB.SR.24H (FP) ONE (08:45)
[2016-06-13] MEDS ORDERED: METOPROLOL SUCCINATE 25 MG TAB.SR.24H (FP) ONE (08:45)
[2016-06-13] MEDS ORDERED: PT OWN MED DRAWER 7, Y5N ONE (08:46)
[2016-06-13 09:07] LABS: ALBUMIN 2.6 g/dl (3.4-5.0); ANION GAP 7 (8-16); CALCIUM 8.4 mg/dL (8.5-10.1); CO2 30 mmol/L (21-32); CREATININE 0.8 mg/dL (0.7-1.3); GLUCOSE,RANDOM 101 mg/dL (74-106); SGOT/AST 23 U/L (15-37); SGPT/ALT 63 U/L (12-78)
[2016-06-13] MEDS: METOPROLOL SUCCINATE 50 MG, METOPROLOL SUCCINATE 25 MG PO SCH (09:09)
[2016-06-13] MEDS: RANITIDINE HCL 150 MG TABLET (FP) PO SCH (09:09)
[2016-06-13] MEDS: CHOLECALCIFEROL (VITAMIN D3) 1,000 UNIT TABLET (FP) PO SCH (09:09)
[2016-06-13] MEDS: LOSARTAN POTASSIUM 50 MG TABLET (FP) PO SCH (09:09)
[2016-06-13] MEDS: methylPREDNISolone NA SUCC 40 MG/1 ML VIAL IVPB SCH (09:09)
[2016-06-13] MEDS: amLODIPine BESYLATE 2.5 MG TABLET (FP) PO SCH (09:09)
[2016-06-13] MEDS: RANOLAZINE E.R. 500 MG TABLET (FP) PO SCH (09:09)
[2016-06-13] MEDS: ASPIRIN 81 MG CHEWABLE TABLETS PO SCH (09:09)
[2016-06-13] MEDS: CEFTRIAXONE 100 ML IVPB SCH (09:10)
[2016-06-13] MEDS: PRASUGREL HCL 10 MG TAB PO SCH (09:10)
[2016-06-13 09:11] LABS: ALK PHOS 66 U/L (45-117); BILIRUBIN,TOTAL 0.4 mg/dL (0.2-1.0)
--- NOTE | 2016-06-13 09:43 | PN ---
Physical Exam: SUBJECTIVE: Patient seen and examined OBJECTIVE: Vital Signs Period Temp Pulse Resp BP Sys/Alcaraz Pulse Ox Last 24 Hr 98.5 F-98.9 F 75-109 18-20 141-161/73-86 95 GENERAL: The patient is awake, alert, and fully oriented, in no acute distress. HEAD: Normal with no signs of trauma. EYES: PERRL, extraocular movements intact, sclera anicteric, conjunctiva clear. No ptosis. ENT: Ears normal, nares patent, oropharynx clear without exudates, moist mucous membranes. NECK: Trachea midline, full range of motion, supple. LUNGS: Breath sounds equal, clear to auscultation bilaterally, no wheezes, no crackles, no accessory muscle use. HEART: Regular rate and rhythm, S1, S2 without murmur, rub or gallop. ABDOMEN: Soft, nontender, nondistended, normoactive bowel sounds, no guarding, no rebound, no hepatosplenomegaly, no masses. EXTREMITIES: 2+ pulses, warm, well-perfused, no edema. NEUROLOGICAL: Cranial nerves II through XII grossly intact. Normal speech, gait not observed. PSYCH: Normal mood, normal affect. SKIN: Warm, dry, normal turgor, no rashes or lesions noted Laboratory Results - last 24 hr 06/11/16 06/11/16 06/11/16 10:37 18:09 21:34 WBC RBC Hgb Hct MCV MCHC RDW Plt Count MPV Neutrophils % Lymphocytes % Sodium Potassium Chloride Carbon Dioxide Anion Gap BUN Creatinine Creat Clearance w eGFR POC Glucometer 326 313 327 Random Glucose Calcium Total Bilirubin AST ALT Alkaline Phosphatase Total Protein Albumin 06/12/16 06/12/16 06/12/16 06:18 12:00 17:51 WBC RBC Hgb Hct MCV MCHC RDW Plt Count MPV Neutrophils % Lymphocytes % Sodium Potassium Chloride Carbon Dioxide Anion Gap BUN Creatinine Creat Clearance w eGFR POC Glucometer 200 283 266 Random Glucose Calcium Total Bilirubin AST ALT Alkaline Phosphatase Total Protein Albumin 06/12/16 06/13/16 06/13/16 22:25 06:00 06:00 WBC 11.0 H RBC 3.32 L Hgb 10.5 L Hct 30.9 L MCV 93.1 MCHC 34.0 RDW 12.9 Plt Count 470 H D MPV 7.3 L Neutrophils % Y Lymphocytes % Y Sodium 142 Potassium 4.2 Chloride 105 Carbon Dioxide 30 Anion Gap 7 L BUN 17 Creatinine 0.8 Creat Clearance w eGFR > 60 POC Glucometer 321 Random Glucose 101 D Calcium 8.4 L Total Bilirubin 0.4 D AST 23 D ALT 63 Alkaline Phosphatase 66 Total Protein 6.0 L Albumin 2.6 L 06/13/16 06:18 WBC RBC Hgb Hct MCV MCHC RDW Plt Count MPV Neutrophils % Lymphocytes % Sodium Potassium Chloride Carbon Dioxide Anion Gap BUN Creatinine Creat Clearance w eGFR POC Glucometer 102 Random Glucose Calcium Total Bilirubin AST ALT Alkaline Phosphatase Total Protein Albumin Active Medications Generic Name Dose Route Start Last Admin Trade Name Freq PRN Reason Stop Dose Admin Acetaminophen 650 mg 06/07/16 23:22 06/12/16 10:15 Tylenol - PO 650 mg Q6H PRN Administration FEVER OR PAIN Albuterol/Ipratropium 1 amp 06/09/16 08:45 06/13/16 06:40 Duoneb - NEB 1 amp QIDR MARYANN Administration Amlodipine Besylate 2.5 mg 06/08/16 10:00 06/13/16 09:09 Norvasc - PO 2.5 mg DAILY MARYANN Administration Aspirin 81 mg 06/08/16 10:00 06/13/16 09:09 Asa - PO 81 mg DAILY MARYANN Administration Atorvastatin Calcium 10 mg 06/08/16 22:00 06/12/16 21:27 Lipitor - PO 10 mg HS MARYANN Administration Cholecalciferol 1,000 unit 06/08/16 10:00 06/13/16 09:09 Vitamin D3 - PO 1,000 unit BID MARYANN Administration Sodium Chloride 1,000 mls @ 50 mls/hr 06/08/16 06:30 06/12/16 06:19 Normal Saline - IV Not Given ASDIR MARYANN Ceftriaxone Sodium 100 mls @ 200 mls/hr 06/09/16 10:00 06/13/16 09:10 Rocephin 2gm Ivpb (Pre-Docked) IVPB 200 mls/hr DAILY MARYANN Administration Insulin Aspart 1 vial 06/08/16 11:00 06/13/16 06:21 Novolog Vial Sliding Scale - SQ Not Given ACHS [facility] Protocol Insulin Detemir 5 units 06/10/16 22:00 06/12/16 22:28 Levemir Vial SQ 5 units HS [facility] Administration Losartan Potassium 50 mg 06/09/16 10:00 06/13/16 09:09 Cozaar - PO 50 mg DAILY MARYANN Administration Methylprednisolone Sodium Succinate 40 mg 06/09/16 16:00 06/13/16 09:09 Solu-Medrol - IVPB 40 mg DAILY MARYANN Administration Metoprolol Succinate 50 mg/ 75 mg 06/10/16 10:00 06/13/16 09:09 Metoprolol Succinate 25 mg PO 75 mg DAILY MARYANN Administration Prasugrel 10 mg 06/08/16 10:00 06/13/16 09:10 Effient - PO 10 mg DAILY MARYANN Administration Ranitidine HCl 150 mg 06/10/16 10:00 06/13/16 09:09 Zantac - PO 150 mg DAILY MARYANN Administration Ranolazine 1,000 mg 06/08/16 10:00 06/13/16 09:09 Ranexa - PO 1,000 mg BID MARYANN Administration Microbiology 06/11/16 11:00 Sputum - Expectorated AFB Smear Concentration - Final 06/11/16 11:00 Sputum - Expectorated Mycobacterial Culture - Preliminary 06/07/16 17:40 Nasopharyngeal Swab Respiratory Virus Panel - Final 06/07/16 17:06 Blood - Peripheral Venous Blood Culture - Final NO GROWTH AFTER 5 DAYS INCUBATION 06/10/16 09:25 Sputum - Expectorated Gram Stain - Final 06/10/16 09:25 Sputum - Expectorated Sputum Culture - Final NORMAL RESPIRATORY MADIHA 06/07/16 17:06 Blood - Peripheral Venous Blood Culture - Final NO GROWTH AFTER 5 DAYS INCUBATION 06/10/16 09:25 Sputum - Expectorated AFB Smear Concentration - Final 06/10/16 09:25 Sputum - Expectorated Direct Acid Fast Bacilli Smear - Final 06/10/16 09:25 Sputum - Expectorated Mycobacterial Culture - Preliminary 06/10/16 18:30 Sputum - Expectorated AFB Smear Concentration - Final 06/10/16 18:30 Sputum - Expectorated Direct Acid Fast Bacilli Smear - Final 06/10/16 18:30 Sputum - Expectorated Mycobacterial Culture - Preliminary 06/09/16 07:50 Blood - Peripheral Venous TB Test (QFT) ([facility]) - Final 06/07/16 20:52 Urine For Antigen Detection Legionella Antigen - Final 06/07/16 20:52 Urine For Antigen Detection Streptococcus pneumoniae Antigen (M - Final 06/10/16 06:00 Urine - Urine Clean Catch Mycobacterial Culture - Preliminary 06/07/16 20:52 Urine - Urine Clean Catch Urine Culture - Final NO GROWTH OBTAINED 06/07/16 17:40 Nasopharyngeal Swab Influenza Types A,B Antigen ([facility]) - Final 06/07/16 17:40 Nasopharyngeal Swab - Final ASSESSMENT/PLAN: 70 year old male with a significant PMH of HTN, HLD, CAD s/p stents x 4 s/p CABG x 4. Admitted for sepsis secondary to pneumonia. r/o TB. Sepsis likely secondary to Pneumonia Blood-tinged sputum --CXR: DAWSON infiltrate --continue ceftriaxone --Quant gold indeterminate; AFB x 2 neg, third pending Hypertension --continue losartan and amlodipine Hyperlipidemia --continue Lipitor CAD s/p stents s/p CABG --continue ASA, Effient, metoprolol, Ranexa NIDDM --Levemire 5U qhs --Novolog sliding scale F/E/N Fluids: NS @50cc/hr Electrolytes: replete as indicated Nutrition: regular diet DVT prophylaxis: ambulatory patient, SCDs in bed Disposition: continues to require inpatient hospitalization. Full Code. Visit type - Emergency Visit Emergency Visit: Yes ED Registration Date: 06/07/16 Care time: The patient presented to the Emergency Department on the above date and was hospitalized for further evaluation of their emergent condition. - New Patient This patient is new to me today: No - Critical Care Critical Care patient: No - Discharge Referral Referred to [facility] Med P.C.: No
[2016-06-13 10:56] LABS: HYPOCHROMIA FEW; METAMYELOCYTE 2 % (0-2); PLATELET ESTIMATE INCREASED (NORMAL); POLYCHROMASIA 1+
[2016-06-13 13:45] VITALS: BP 155/76; TEMP 98.1
--- NOTE | 2016-06-13 13:53 | PN ---
Progress Note (short form) - Note Progress Note: PULMONARY NO OVERALL CHANGE IN EXAM 3RD SPUTUM AFB SMEAR NEGATIVE (LAB CALLED) WOULD CONTINUE TO TREAT FOR CAP NEEDS CT CHEST OUTPATIENT TO F/U LEFT UPPER LOBE INFILTRATE PLEASE CALL PRN Elaine BARTON MD
--- NOTE | 2016-06-13 14:08 | PN ---
Progress Note, Physician History of Present Illness: Awake, alert Reports less cough- dry No c/o dyspnea/ chest pain No fever/ chills Lab reports 3rd AFB smear (-) - Current Medication List Current Medications: Active Medications Acetaminophen (Tylenol -) 650 mg PO Q6H PRN PRN Reason: FEVER OR PAIN Last Admin: 06/12/16 10:15 Dose: 650 mg Albuterol/Ipratropium (Duoneb -) 1 amp NEB QIDR [facility] Last Admin: 06/13/16 12:20 Dose: 1 amp Amlodipine Besylate (Norvasc -) 2.5 mg PO DAILY [facility] Last Admin: 06/13/16 09:09 Dose: 2.5 mg Aspirin (Asa -) 81 mg PO DAILY [facility] Last Admin: 06/13/16 09:09 Dose: 81 mg Atorvastatin Calcium (Lipitor -) 10 mg PO HS [facility] Last Admin: 06/12/16 21:27 Dose: 10 mg Cholecalciferol (Vitamin D3 -) 1,000 unit PO BID [facility] Last Admin: 06/13/16 09:09 Dose: 1,000 unit Sodium Chloride (Normal Saline -) 1,000 mls @ 50 mls/hr IV ASDIR [facility] Last Admin: 06/12/16 06:19 Dose: Not Given Ceftriaxone Sodium (Rocephin 2gm Ivpb (Pre-Docked)) 100 mls @ 200 mls/hr IVPB DAILY [facility] Last Admin: 06/13/16 09:10 Dose: 200 mls/hr Insulin Aspart (Novolog Vial Sliding Scale -) 1 vial SQ ACHS [facility] PRN Reason: Protocol Last Admin: 06/13/16 12:14 Dose: 6 units Insulin Detemir (Levemir Vial) 5 units SQ [facility] Last Admin: 06/12/16 22:28 Dose: 5 units Losartan Potassium (Cozaar -) 50 mg PO DAILY [facility] Last Admin: 06/13/16 09:09 Dose: 50 mg Methylprednisolone Sodium Succinate (Solu-Medrol -) 40 mg IVPB DAILY [facility] Last Admin: 06/13/16 09:09 Dose: 40 mg Metoprolol Succinate 50 mg/ (Metoprolol Succinate 25 mg) 75 mg PO DAILY [facility] Last Admin: 06/13/16 09:09 Dose: 75 mg Prasugrel (Effient -) 10 mg PO DAILY [facility] Last Admin: 06/13/16 09:10 Dose: 10 mg Ranitidine HCl (Zantac -) 150 mg PO DAILY [facility] Last Admin: 06/13/16 09:09 Dose: 150 mg Ranolazine (Ranexa -) 1,000 mg PO BID [facility] Last Admin: 06/13/16 09:09 Dose: 1,000 mg - Objective Vital Signs: Vital Signs Temperature 98.1 F 06/13/16 08:00 Pulse Rate 85 06/13/16 08:00 Respiratory Rate 20 06/13/16 09:00 Blood Pressure 155/76 06/13/16 08:00 O2 Sat by Pulse Oximetry (%) 95 06/13/16 10:00 Constitutional: Yes: No Distress Eyes: Yes: Conjunctiva Clear Cardiovascular: Yes: Regular Rate and Rhythm, S1, S2 Respiratory: Yes: CTA Bilaterally Gastrointestinal: Yes: Normal Bowel Sounds, Soft. No: Tenderness Edema: No Labs: CBC, BMP 06/13/16 06:00 06/13/16 06:00 INR, PTT INR 1.21 (0.82-1.09) 06/09/16 07:50 Assessment/Plan DAWSON infiltrate possible AFB disease v. community acquired AFB smear / PCR (-) x 3 S/P hemoptysis Hyponatremia- resolved D/C isolation Substitute po ceftin 500mg bid x7d Needs follow up CT chest as outpatient to document resolution of apical infiltrate Pt aware that AFB cultures may still grow MTB or atypical mycobacteria over the next 8-12w
[2016-06-13 14:29] VITALS: PULSE 86
--- NOTE | 2016-06-13 15:47 | DS ---
Physical Exam: SUBJECTIVE: Patient seen and examined OBJECTIVE: Vital Signs Period Temp Pulse Resp BP Sys/Alcaraz Pulse Ox Last 24 Hr 98.1 F-98.9 F 75-94 18-20 141-161/73-86 95-96 PHYSICAL EXAM GENERAL: The patient is awake, alert, and fully oriented, in no acute distress. HEAD: Normal with no signs of trauma. EYES: PERRL, extraocular movements intact, sclera anicteric, conjunctiva clear. ENT: Ears normal, nares patent, oropharynx clear without exudates, moist mucous membranes. NECK: Trachea midline, full range of motion, supple. LUNGS: Breath sounds equal, clear to auscultation bilaterally, no wheezes, no crackles, no accessory muscle use. HEART: Regular rate and rhythm, S1, S2 without murmur, rub or gallop. ABDOMEN: Soft, nontender, nondistended, normoactive bowel sounds, no guarding, no rebound, no hepatosplenomegaly, no masses. EXTREMITIES: 2+ pulses, warm, well-perfused, no edema. NEUROLOGICAL: Cranial nerves II through XII grossly intact. Normal speech, gait not observed. PSYCH: Normal mood, normal affect. SKIN: Warm, dry, normal turgor, no rashes or lesions noted. LABS Laboratory Results - last 24 hr 06/12/16 06/12/16 06/13/16 17:51 22:25 06:00 WBC 11.0 H RBC 3.32 L Hgb 10.5 L Hct 30.9 L MCV 93.1 MCHC 34.0 RDW 12.9 Plt Count 470 H D MPV 7.3 L Neutrophils % 70.0 Lymphocytes % 12.0 D Monocytes % 10.0 Eosinophils % 2.0 D Band Neutrophils 1.0 Metamyelocytes 2 Myelocytes 3 H Platelet Estimate Increased Platelet Comment No clumping noted Polychromasia 1+ Hypochromic-Microcytic Few Sodium Potassium Chloride Carbon Dioxide Anion Gap BUN Creatinine Creat Clearance w eGFR POC Glucometer 266 321 Random Glucose Calcium Total Bilirubin AST ALT Alkaline Phosphatase Total Protein Albumin 06/13/16 06/13/16 06/13/16 06:00 06:18 12:13 WBC RBC Hgb Hct MCV MCHC RDW Plt Count MPV Neutrophils % Lymphocytes % Monocytes % Eosinophils % Band Neutrophils Metamyelocytes Myelocytes Platelet Estimate Platelet Comment Polychromasia Hypochromic-Microcytic Sodium 142 Potassium 4.2 Chloride 105 Carbon Dioxide 30 Anion Gap 7 L BUN 17 Creatinine 0.8 Creat Clearance w eGFR > 60 POC Glucometer 102 261 Random Glucose 101 D Calcium 8.4 L Total Bilirubin 0.4 D AST 23 D ALT 63 Alkaline Phosphatase 66 Total Protein 6.0 L Albumin 2.6 L HOSPITAL COURSE: Date of Admission:06/07/16 Date of Discharge: 06/13/16 Microbiology 06/11/16 11:00 Sputum - Expectorated AFB Smear Concentration - Final 06/11/16 11:00 Sputum - Expectorated Mycobacterial Culture - Preliminary 06/07/16 17:40 Nasopharyngeal Swab Respiratory Virus Panel - Final 06/07/16 17:06 Blood - Peripheral Venous Blood Culture - Final NO GROWTH AFTER 5 DAYS INCUBATION 06/10/16 09:25 Sputum - Expectorated Gram Stain - Final 06/10/16 09:25 Sputum - Expectorated Sputum Culture - Final NORMAL RESPIRATORY MADIHA 06/07/16 17:06 Blood - Peripheral Venous Blood Culture - Final NO GROWTH AFTER 5 DAYS INCUBATION 06/10/16 09:25 Sputum - Expectorated AFB Smear Concentration - Final 06/10/16 09:25 Sputum - Expectorated Direct Acid Fast Bacilli Smear - Final 06/10/16 09:25 Sputum - Expectorated Mycobacterial Culture - Preliminary 06/10/16 18:30 Sputum - Expectorated AFB Smear Concentration - Final 06/10/16 18:30 Sputum - Expectorated Direct Acid Fast Bacilli Smear - Final 06/10/16 18:30 Sputum - Expectorated Mycobacterial Culture - Preliminary 06/09/16 07:50 Blood - Peripheral Venous TB Test (QFT) ([facility]) - Final 06/07/16 20:52 Urine For Antigen Detection Legionella Antigen - Final 06/07/16 20:52 Urine For Antigen Detection Streptococcus pneumoniae Antigen (M - Final 06/10/16 06:00 Urine - Urine Clean Catch Mycobacterial Culture - Preliminary 06/07/16 20:52 Urine - Urine Clean Catch Urine Culture - Final NO GROWTH OBTAINED 06/07/16 17:40 Nasopharyngeal Swab Influenza Types A,B Antigen ([facility]) - Final 06/07/16 17:40 Nasopharyngeal Swab - Final ASSESSMENT/PLAN: 70 year old male with a significant PMH of HTN, HLD, CAD s/p stents x 4 s/p CABG x 4. Admitted for sepsis secondary to pneumonia. r/o TB. Sepsis likely secondary to Pneumonia Blood-tinged sputum --CXR: DAWSON infiltrate --stop ceftriaxone, start PO ceftin at discharge --Quant gold indeterminate; AFB x 3 neg --will need repeat CT in 6 weeks Hypertension --continue losartan and amlodipine Hyperlipidemia --continue Lipitor CAD s/p stents s/p CABG --continue ASA, Effient, metoprolol, Ranexa NIDDM --[place] 5U qhs --Novolog sliding scale Minutes to complete discharge: 35 Discharge Summary Reason For Visit: PNEUMONIA & SEPSIS Current Active Problems Community acquired pneumonia (Acute) DVT prophylaxis (Acute) Diabetes mellitus (Acute) HLD (hyperlipidemia) (Acute) HTN (hypertension) (Acute) Hyponatremia (Acute) Lactic acidemia (Acute) Sepsis (Acute) Condition: Improved - Instructions Diet, Activity, Other Instructions: A prescription has been sent to your pharmacy for ceftin which is an antibiotic. Take this medication as directed and be sure to finish all the medication. It is very important you have a follow up CT scan of your chest in 6 weeks. Return to the emergency department for any new or worsening symptoms. Referrals: Milana Pelayo [Primary Care Provider] - Disposition: HOME - Home Medications Comprehensive Discharge Medication List: Ambulatory Orders Amlodipine Besylate [Norvasc -] 2.5 mg PO DAILY 06/07/16 Aspirin [ASA -] 81 mg PO DAILY 06/07/16 B Complex with Vitamin C [Super B with Vit C] 1 each PO BID 06/07/16 Cholecalciferol (Vitamin D3) [Vitamin D3 -] 1,000 unit PO BID 06/07/16 Glipizide Xl [Glucotrol Xl -] 10 mg PO BID 06/07/16 Glucosamine HCl/Chondr Leija A Na [Osteo Bi-Flex Caplet] 1 each PO BID 06/07/16 Losartan 50Mg/Hctz 12.5MG [Hyzaar -] 1 tab PO DAILY 06/07/16 Metoprolol Succinate [Toprol Xl -] 75 mg PO HS 06/07/16 Multivits,Ca,Min/Iron/FA/Lycop [Centrum Men's Tablet] 1 each PO DAILY 06/07/16 Omeprazole 20 mg PO DAILY 06/07/16 Pioglitazone HCl [Actos] 30 mg PO HS 06/07/16 Prasugrel HCl [Effient] 10 mg PO DAILY 06/07/16 Pravastatin Sodium [Pravachol (Nf)] 20 mg PO HS 06/07/16 Ranolazine [Ranexa] 1,000 mg PO BID 06/07/16 Sitagliptin Phos/Metformin HCl [Janumet 50-1,000 mg Tablet] 1 each PO BID Tadalafil [Cialis] 5 mg PO HS 06/07/16 Ubidecarenone [Co Q-10] 100 mg PO BID 06/07/16 Cefuroxime Axetil [Ceftin -] 500 mg PO BID #14 tablet 06/13/16 This patient is new to me today: No Emergency Visit: Yes ED Registration Date: 06/07/16 Care time: The patient presented to the Emergency Department on the above date and was hospitalized for further evaluation of their emergent condition. Critical Care patient: No - Discharge Referral Referred to [facility] No
== END 2016-06-13 16:39 | disposition home or self-care (01) | DRG 871 ==
LOC: FER 16:35 → FM/S 17:50 → J8W 06-09 14:24
PROVIDERS: ADMIT Internal Medicine; ATTEND Nurse Practitioner Acute Care
DX: A41.9 Sepsis, unspecified organism (principal); J18.9 Pneumonia, unspecified organism; E87.1 Hypo-osmolality and hyponatremia; E11.9 Type 2 diabetes mellitus without complications; I10 Essential (primary) hypertension; E78.5 Hyperlipidemia, unspecified; I25.10 Atherosclerotic heart disease of native coronary artery without angina pectoris; Z98.61 Coronary angioplasty status; Z95.1 Presence of aortocoronary bypass graft
CPT/HCPCS: 36415; 71010-TC; 71020-TC; 71250-TC; 80048; 80053; 81003; 82533; 82550; 83605; 83735; 83930; 83935; 84100; 84484; 85025; 85610; 85730; 86140; 86480; 87040; 87070; 87086; 87116; 87205; 87206; 87254; 87804; 87899; 93005; 94010; 94640; 99283-25

== ENCOUNTER 2017-09-03 16:06 | Emergency (ER) | payer OTHER ==
--- NOTE | 2017-09-03 16:39 | PDOC ---
History of Present Illness - General Chief Complaint: Respiratory Stated Complaint: COUGH, FEVER, CHEST CONGESTION Time Seen by Provider: 09/03/17 16:13 - History of Present Illness Initial Comments: 72 year old male with PMH of CAD (s/p CABG x 4 and Stent x2), NIDDM, HTN, and GERD presenting with fevers, chills, cough, and generalized weakness for the past week. His symptoms first began with a cough one week prior that has been productive with villafana sputum along with generalized weakness during this time. His feves have been present for the last three days and peaked as high as 100.5. He saw his PCP (Susannah Short) today and she recommended that he comeinto the ED. He has received his Pneumovax just one month prior after which he experience d few days of flu like symptoms. Denies nausea, vomiting, diarrhea, constipation, SOB, sick contacts, travel, or other symptoms. 09/03/17 17:10 Past History - Past Medical History Allergies/Adverse Reactions: Allergies Allergy/AdvReac Type Severity Reaction Status Date / Time Pork/Porcine Containing AdvReac Severe Verified 06/07/16 19:35 Products Home Medications: Ambulatory Orders Amlodipine Besylate [Norvasc -] 2.5 mg PO DAILY 06/07/16 Aspirin [ASA -] 81 mg PO DAILY 06/07/16 B-Complex with Vitamin C [Super B with Vit C] 1 each PO BID 06/07/16 Cholecalciferol (Vitamin D3) [Vitamin D3 -] 1,000 unit PO BID 06/07/16 Glipizide Xl [Glucotrol Xl -] 5 mg PO BID 06/07/16 Glucosamine/Chondr Leija A Sod [Osteo Bi-Flex Caplet] 1 each PO BID 06/07/16 Losartan 50Mg/Hctz 12.5MG [Hyzaar -] 1 tab PO DAILY 06/07/16 Metoprolol Succinate [Toprol Xl -] 50 mg PO HS 06/07/16 Multivit-Mins/Iron/Folic/Lycop [Centrum Men's Tablet] 1 each PO DAILY 06/07/16 Omeprazole 20 mg PO DAILY 06/07/16 Pioglitazone HCl [Actos] 30 mg PO HS 06/07/16 Pravastatin Sodium [Pravachol (Nf)] 20 mg PO HS 06/07/16 Ranolazine [Ranexa] 1,000 mg PO BID 06/07/16 Sitagliptin Phos/Metformin HCl [Janumet 50-1,000 mg Tablet] 1 each PO BID Ubidecarenone [Co Q-10] 100 mg PO BID 06/07/16 Azithromycin 250 mg PO DAILY #4 tablet 09/03/17 Anemia: No Asthma: No Cancer: No Cardiac Disorders: Yes (4 STENTS, QUAD BYPASS) CVA: No COPD: No CHF: No Dementia: No Diabetes: Yes GI Disorders: Yes (GERD) Disorders: No HTN: Yes Hypercholesterolemia: No Liver Disease: No Seizures: No Thyroid Disease: No - Surgical History Abdominal Surgery: No Appendectomy: No Cardiac Surgery: Yes (STENTS, QUAD BYPASS) Cholecystectomy: No Lung Surgery: No Neurologic Surgery: No Orthopedic Surgery: No - Suicide/Smoking/Psychosocial Hx Smoking History: Never smoked Have you smoked in the past 12 months: No Hx Alcohol Use: No Drug/Substance Use Hx: No Substance Use Type: None Hx Substance Use Treatment: No Review of Systems - Review of Systems Constitutional: Yes: Chills, Fever, Weakness. No: Loss of Appetite HEENTM: No: Blurred Vision, Tearing Respiratory: Yes: Cough, Productive cough. No: Shortness of Breath, SOB with Exertion, Wheezing Cardiac (ROS): Yes: Chest Pain. No: Irregular Heart Rate, Lightheadedness, Palpitations, Syncope ABD/GI: No: Diarrhea, Nausea, Vomiting : No: Burning, Dysuria, Discharge Musculoskeletal: No: Back Pain, Joint Pain Integumentary: No: Bruising, Erythema, Flushing, Lesions, Lumps Neurological: No: Numbness, Paresthesia, Tingling, Tremors, Weakness Psychiatric: No: Anxiety, Depression Hematologic/Lymphatic: No: Anemia, Blood Clots, Easy Bleeding *Physical Exam - Physical Exam General Appearance: Yes: Nourished, Appropriately Dressed. No: Apparent Distress HEENT: positive: EOMI, DELFINO, Normal ENT Inspection, Normal Voice Neck: positive: Trachea midline, Normal Thyroid, Supple. negative: Tender, Rigid Respiratory/Chest: negative: Chest Tender, Lungs Clear (Left lower lung base crackles), Normal Breath Sounds, Respiratory Distress, Accessory Muscle Use Cardiovascular: positive: Regular Rhythm, Regular Rate Gastrointestinal/Abdominal: positive: Normal Bowel Sounds, Flat, Soft. negative : Tender Rectal Exam: positive: deferred Lymphatic: positive: Adenopathy. negative: Tenderness Musculoskeletal: positive: Normal Inspection. negative: Decreased Range of Motion, Muscle Spasm Extremity: positive: Normal Capillary Refill, Normal Inspection, Normal Range of Motion. negative: Tender Integumentary: positive: Normal Color, Dry, Warm Neurologic: positive: Fully Oriented, Alert, Normal Mood/Affect, Normal Response , Motor Strength 08/08 ED Treatment Course - LABORATORY CBC & Chemistry Diagram: 09/03/17 18:45 09/03/17 18:45 Medical Decision Making - Medical Decision Making 72 year old male with complicated cardiac history presenting with measured fevers at home that are improving in the setting of a non-productive cough. Patient pending cxr and labs. VSS in ED and patient appears well overall. Given clear pulm exam, this is likely bronchitis. Signed out to Dr. Kerr pending these results and likely discharge. *DC/Admit/Observation/Transfer Diagnosis at time of Disposition: Bronchitis - Discharge Dispostion Disposition: HOME Condition at time of disposition: Stable - Prescriptions Prescriptions: Azithromycin 250 mg PO DAILY #4 tablet - Referrals Referrals: Milana Pelayo [Primary Care Provider] - Call tomorrow - Patient Instructions Printed Discharge Instructions: DI for Acute Bronchitis Additional Instructions: Azithromycin 250 mg daily for the next 4 days Take azithromycin with full meal Drink plenty of fluids; continue other medications as prescribed Call office tomorrow to arrange follow-up within the next 5 days Return to ER if you have difficulty breathing/shortness of breath, high fever, wheezing - Post Discharge Activity
[2017-09-03 17:19] VITALS: BP 133/79; PULSE 95; TEMP 99.3; BMI 27.0
--- NOTE | 2017-09-03 17:34 | PDOC ---
Attending Attestation - Resident Resident Name: Yves Adan - ED Attending Attestation I have performed the following: I have examined & evaluated the patient, The case was reviewed & discussed with the resident, I agree w/resident's findings & plan, Exceptions are as noted - HPI HPI: 09/03/17 17:33 72-year-old male with history of diabetes, GERD, coronary disease status post quadruple bypass, cardiac stents, hypertension sent in from his primary care physician's office for rule out pneumonia. Patient reports her several days of productive cough with tactile fevers. Patient noted a fever of 100.4 several days ago. Denies shortness of breath but reports some chest pain with coughing. Came to the ER for further evaluation. - Physicial Exam PE: 09/03/17 17:33 GENERAL: Awake, alert, and fully oriented, in no acute distress. HEAD: No signs of trauma EYES: EOMI, sclera anicteric, conjunctiva clear ENT: Auricles normal inspection, hearing grossly normal, nares patent NECK: Normal ROM, supple, no lymphadenopathy, JVD, or masses LUNGS: Breath sounds equal, clear to auscultation bilaterally. Diminished breath sounds at the bases. HEART: Regular rate and rhythm, normal S1 and S2, no murmurs, rubs or gallops EXTREMITIES: Normal range of motion, no edema. No clubbing or cyanosis. No cords, erythema, or tenderness NEUROLOGICAL: Cranial nerves II through XII grossly intact. Normal speech, normal gait SKIN: Warm, Dry, normal turgor, no rashes or lesions noted. - Medical Decision Making 09/03/17 17:33 Vital Signs Temp Pulse Resp BP Pulse Ox 99.3 F 95 H 16 133/79 97 09/03/17 16:07 09/03/17 16:07 09/03/17 16:07 09/03/17 16:07 09/03/17 16:07 R/o PNA. Chest xray, labs, cultures If noted to have PNA, will likely need admission. However if the workup and chest xray is unremarkable, pt can be discharged as bronchitis and with PO antibiotics and outpatient followup. He is overall nontoxic appearing and without labor breathing and comfortable. 09/03/17 18:58 Patient signed out to Dr. Kerr for further management and disposition. Heart Score/ECG Review #1 ECG reviewed & interpreted by at: 18:15 09/03/17 18:57 NSR 88, RBBB, no std/amy, QTC 486 msec
[2017-09-03 18:41] LABS: URINE APPEARANCE Clear; URINE BILIRUBIN Negative (NEGATIVE); URINE GLUCOSE (UA) 2+ (NEGATIVE); URINE KETONE Negative (NEGATIVE); URINE LEUK ESTERASE Negative (NEGATIVE); URINE NITRITE Negative (NEGATIVE); URINE PROTEIN Negative (NEGATIVE)
[2017-09-03 18:42] LABS: URINE COLOR YELLOW
[2017-09-03 18:55] LABS: BASO % 0.6 % (0-2.0); EOS % 0.2 % (0-4.5); HEMATOCRIT 35.7 % (35.4-49); HEMOGLOBIN 12.3 GM/dl (11.7-16.9); LYMPH % 17.5 % (8-40); MCH 31.8 pg (25.7-33.7); MCHC 34.4 g/dl (32.0-35.9); MEAN CELL VOLUME 92.5 fl (80-96); MEAN PLT VOLUME 7.8 fl (7.5-11.1); MONO % 9.6 % (3.8-10.2); NEUT % 72.1 % (42.8-82.8); PLATELET COUNT 268 K/MM3 (134-434); RBC 3.86 M/mm3 (4.00-5.60); RDW 12.2 % (11.9-15.9); WHITE BLOOD COUNT 6.1 K/mm3 (4.0-10.8)
[2017-09-03 19:12] LABS: ALBUMIN 3.4 g/dl (3.5-5.0); ALK PHOS 61 U/L (32-92); ANION GAP 10 (8-16); BILIRUBIN,TOTAL 0.5 mg/dl (0.2-1.0); BLOOD UREA NITROGEN 14 mg/dl (7-18); CALCIUM 8.7 mg/dl (8.4-10.2); CHLORIDE 98 mmol/L (98-107); CO2 25 mmol/L (22-28); GLUCOSE,RANDOM 134 mg/dl (74-106); POTASSIUM 3.8 mmol/L (3.5-5.1); SGOT/AST 25 U/L (10-42); SGPT/ALT 20 U/L (10-40); SODIUM 133 mmol/L (136-145); TOT PROT 7.4 g/dl (6.4-8.3)
--- NOTE | 2017-09-03 20:13 | PDOC ---
*Physical Exam - Vital Signs Last Vital Signs Temp Pulse Resp BP Pulse Ox 99.3 F 95 H 16 133/79 97 09/03/17 16:07 09/03/17 16:07 09/03/17 16:07 09/03/17 16:07 09/03/17 16:07 ED Treatment Course - LABORATORY CBC & Chemistry Diagram: 09/03/17 18:45 09/03/17 18:45 - ADDITIONAL ORDERS Additional order review: Laboratory Results 09/03/17 09/03/17 18:45 18:30 Sodium 133 L Potassium 3.8 Chloride 98 Carbon Dioxide 25 Anion Gap 10 BUN 14 D Creatinine 1.0 D Creat Clearance w eGFR > 60 Random Glucose 134 H D Calcium 8.7 Total Bilirubin 0.5 D AST 25 ALT 20 D Alkaline Phosphatase 61 D Total Protein 7.4 Albumin 3.4 L Urine Color Yellow Urine Appearance Clear Urine pH 5.0 Ur Specific [place] 1.010 Urine Protein Negative Urine Glucose (UA) 2+ H Urine Ketones Negative Urine Blood Negative Urine Nitrite Negative Urine Bilirubin Negative Urine Urobilinogen 2.0 Ur Leukocyte Esterase Negative 09/03/17 18:45 RBC 3.86 L MCV 92.5 MCHC 34.4 RDW 12.2 MPV 7.8 Neutrophils % 72.1 Lymphocytes % 17.5 D Monocytes % 9.6 Eosinophils % 0.2 D Basophils % 0.6 Progress Note - Progress Note Progress Note: Care of this patient received from Dr. Ahuja. Laboratory evaluation including CBC/chemistry profile and venous blood gas shows no evidence of acute abnormalities. Patient discharged with diagnosis of bronchitis; he will be started on azithromycin course (Z-Pravin). First dose of 500 mg azithromycin will be given here in the emergency room. Patient should follow-up with his PMD, and return here if he has shortness of breath, wheezing, high fever. *DC/Admit/Observation/Transfer Diagnosis at time of Disposition: Bronchitis - Discharge Dispostion Disposition: HOME Condition at time of disposition: Stable - Prescriptions Prescriptions: Azithromycin 250 mg PO DAILY #4 tablet - Referrals Referrals: Milana Pelayo [Primary Care Provider] - Call tomorrow - Patient Instructions Printed Discharge Instructions: DI for Acute Bronchitis Additional Instructions: Azithromycin 250 mg daily for the next 4 days Take azithromycin with full meal Drink plenty of fluids; continue other medications as prescribed Call Dr.Pierce office tomorrow to arrange follow-up within the next 5 days Return to ER if you have difficulty breathing/shortness of breath, high fever, wheezing - Post Discharge Activity
[2017-09-03] MEDS ORDERED: AZITHROMYCIN 250 MG TABLET PO ONE (20:22)
[2017-09-03] MEDS ORDERED: AZITHROMYCIN 500 MG TABLET ONE (20:26)
[2017-09-03 20:35] LABS: VENOUS PC02 45.6 mmHg (38-52); VENOUS PH 7.38 (7.32-7.42); VENOUS PO2 28.6 mmHg (28-48)
--- NOTE | 2017-09-04 10:18 | EKG ---
Test Reason : Blood Pressure : / mmHG Vent. Rate : 088 BPM Atrial Rate : 088 BPM P-R Int : 200 ms QRS Dur : 150 ms QT Int : 402 ms P-R-T Axes : 048 -29 018 degrees QTc Int : 486 ms NORMAL SINUS RHYTHM RIGHT BUNDLE BRANCH BLOCK ABNORMAL ECG WHEN COMPARED WITH ECG OF 07-JUN-2016 17:25, NO SIGNIFICANT CHANGE WAS FOUND Confirmed by REMY JACOBO MD ([id number]) on 09/04/2017 10:17:56 AM Referred By: DR VILLEGAS Confirmed By:REMY JACOBO MD
== END 2017-09-03 20:35 | disposition home or self-care (01) ==
LOC: FER 16:06
DX: J40 Bronchitis, not specified as acute or chronic (principal); E11.9 Type 2 diabetes mellitus without complications; K21.9 Gastro-esophageal reflux disease without esophagitis; I25.10 Atherosclerotic heart disease of native coronary artery without angina pectoris; I10 Essential (primary) hypertension; Z95.5 Presence of coronary angioplasty implant and graft
CPT/HCPCS: 36415; 71046-TC-FY; 80053; 81003; 82803; 85025; 87040; 93005; 99282-25

== ENCOUNTER 2021-09-30 16:31 | Emergency (ER) | payer OTHER ==
[2021-09-30 17:09] VITALS: BP 114/54; PULSE 84; TEMP 98.1; BMI 26.6
[2021-09-30] MEDS ORDERED: BEBTELOVIMAB (EUA) 175 MG/2 ML VIAL IVPUSH ONE (17:48)
== END 2021-09-30 20:23 | disposition home or self-care (01) ==
LOC: JER 16:31
PROC: 3E033GC Introduction of Other Therapeutic Substance into Peripheral Vein, Percutaneous Approach (ICD-10-PCS; principal; 2021-09-30)
DX: U07.1 COVID-19 (principal)
CPT/HCPCS: 96374; 99284-25; M0222; Q0222

== ENCOUNTER 2023-07-19 21:27 | Observation (INO) | payer OTHER ==
[2023-07-19 22:24] LABS: HEMATOCRIT 35.8 % (35.4-49); HEMOGLOBIN 11.9 G/dL (11.7-16.9); MCH 31.2 pg (25.7-33.7); MCHC 33.2 g/dl (32.0-35.9); MEAN CELL VOLUME 93.9 fl (80-96); PLATELET COUNT 222.9 10^3/uL (134-434); RBC 3.81 10^6/uL (4.00-5.60); RDW 12.6 % (11.9-15.9)
[2023-07-19 22:43] LABS: ALBUMIN 3.8 g/dl (3.4-5.0); ALK PHOS 85 U/L (45-117); ANION GAP 11 mmol/L (4-13); BILIRUBIN,TOTAL 0.8 mg/dl (0.2-1); CALCIUM 8.6 mg/dl (8.5-10.1); CHLORIDE 97 mmol/L (98-107); CO2 25 mmol/L (21-32); CREATININE 1.1 mg/dl (0.6-1.3); SGOT/AST 32 U/L (15-37); SGPT/ALT 32 U/L (7-52); SODIUM 133 mmol/L (136-145); TOT PROT 6.6 g/dl (6.4-8.2)
[2023-07-19 23:13] LABS: GLUCOSE,RANDOM 442 mg/dl (74-106)
[2023-07-19] MEDS ORDERED: IBUPROFEN 400 MG TABLET (FP) PO ONE (23:26)
[2023-07-19] MEDS ORDERED: INSULIN REGULAR HUMAN 100 UNITS/ML *VIAL ONE (23:27)
[2023-07-19] MEDS: INSULIN REGULAR HUMAN 100 UNITS/ML *VIAL IVPUSH ONE (23:30)
[2023-07-19] MEDS: IBUPROFEN 400 MG TABLET (FP) PO ONE (23:30)
[2023-07-19] MEDS: SODIUM CHLORIDE 0.9% 500 ML INFUS.BAG IV ONE (23:42)
[2023-07-20] MEDS ORDERED: DOCUSATE SODIUM 100 MG CAPSULE (FP) PO PRN (00:41)
[2023-07-20] MEDS: SODIUM CHLORIDE 1,000 ML IV SCH (02:08)
[2023-07-20] MEDS: guaiFENesin/D-METHORPHAN TAB.ER.12H PO SCH (02:09)
[2023-07-20 03:17] VITALS: BMI 24.2
[2023-07-20] MEDS ORDERED: INSULIN ASPART SLIDING SCALE (NOVOLOG) 1 VIAL SQ ONE (06:26)
[2023-07-20] MEDS: INSULIN ASPART SLIDING SCALE (NOVOLOG) 1 VIAL SQ SCH (06:33)
[2023-07-20] MEDS: GABAPENTIN 100 MG CAPSULE PO SCH (06:56)
[2023-07-20] MEDS: CEFTRIAXONE 1 GM in DEXTROSE 5%-WATER - 50 ML IVPB SCH (10:22)
[2023-07-20] MEDS: methylPREDNISolone NA SUCC 40 MG/1 ML VIAL IVPUSH SCH (10:40)
[2023-07-20] MEDS: DOXYCYCLINE INJECTION 100 MG in DEXTROSE 5%-WATER 100 ML IVPB SCH (10:40)
[2023-07-20] MEDS: ALBUTEROL SO4 2.5/IPRATROPIUM 0.5 INH SOL 3 ML VIAL.NEB. NEB PRN (10:41)
[2023-07-20] MEDS: INSULIN (LEVEMIR) 100 UNITS/ML UNITS SQ SCH (10:41)
[2023-07-20] MEDS: RANOLAZINE E.R. 500 MG TABLET (FP) PO SCH (10:42)
[2023-07-20] MEDS: ISOSORBIDE MONONITRATE 60 MG TAB.SR.24H (FP) PO SCH (10:43)
[2023-07-20] MEDS: ACETAMINOPHEN 325 MG TABLET (FP) PO PRN (10:43)
[2023-07-20] MEDS: PANTOPRAZOLE 40 MG TABLET PO SCH (10:43)
[2023-07-20] MEDS: ATORVASTATIN CA 80 MG TABLET (FP) PO SCH (21:37)
[2023-07-21 09:03] LABS: CALCIUM 8.8 mg/dl (8.5-10.1); CREATININE 0.8 mg/dl (0.6-1.3); MAGNESIUM 1.7 mg/dL (1.8-2.4); PHOSPHOROUS 2.8 (2.5-4.9)
[2023-07-21] MEDS: LORATADINE 10 MG TABLET PO SCH (09:31)
[2023-07-21] MEDS: predniSONE 20 MG TABLET (UD) PO SCH (09:31)
[2023-07-21] MEDS ORDERED: MAGNESIUM SULF 50% (8.12 MEQ/2 ML-1 GM VIAL) IVPB ONE (09:32)
[2023-07-21] MEDS: LOSARTAN 50MG/HCTZ 12.5MG 1 TAB PO SCH (09:32)
[2023-07-21] MEDS: ALBUTEROL SO4 2.5/IPRATROPIUM 0.5 INH SOL 3 ML VIAL.NEB. NEB SCH (09:32)
[2023-07-21 09:59] LABS: BASO % 0.2 % (0-2.0); HEMATOCRIT 30.6 % (35.4-49); HEMOGLOBIN 10.3 GM/dL (11.7-16.9); LYMPH % 11.8 % (8-40); MCH 31.3 pg (25.7-33.7); MCHC 33.8 g/dl (32.0-35.9); MEAN CELL VOLUME 92.7 fl (80-96); PLATELET COUNT 245 10^3/uL (134-434); RDW 12.1 % (11.9-15.9); WHITE BLOOD COUNT 8.1 K/mm3 (4.0-10.0)
[2023-07-21] MEDS: MAGNESIUM 1GM/D5W - 1 GM/100 ML IVPB IVPB ONE (10:05)
[2023-07-21] MEDS ORDERED: MAGNESIUM OXIDE 400 MG TABLET (FP) PO ONE (13:22)
[2023-07-21] MEDS: INSULIN (LEVEMIR) 100 UNITS/ML UNITS SQ SCH (21:32)
[2023-07-22 07:49] LABS: HEMATOCRIT 31.2 % (35.4-49); HEMOGLOBIN 10.4 G/dL (11.7-16.9); MCH 31.6 pg (25.7-33.7); MCHC 33.3 g/dl (32.0-35.9); MEAN CELL VOLUME 94.7 fl (80-96); MEAN PLT VOLUME 8.9 fl (7.5-11.1); PLATELET COUNT 285.1 10^3/uL (134-434); RBC 3.29 10^6/uL (4.00-5.60); RDW 12.9 % (11.9-15.9); WHITE BLOOD COUNT 11.7 10^3/uL (4.0-10.8)
[2023-07-22 07:59] LABS: CALCIUM 8.7 mg/dl (8.5-10.1); CREATININE 0.9 mg/dl (0.6-1.3); POTASSIUM 3.4 mmol/L (3.5-5.1)
[2023-07-22] MEDS: FUROSEMIDE 40 MG/4 ML INJECTABLE VIAL IVPUSH SCH (09:27)
[2023-07-22] MEDS: POTASSIUM CHLORIDE ORAL LIQUID 20 MEQ/15 ML PO ONE (09:27)
[2023-07-22 12:26] VITALS: BP 127/76; PULSE 93; RESP 22; TEMP 98.2
== END 2023-07-22 16:12 | disposition home or self-care (01) ==
LOC: FER 21:27 → FM/S 07-20 00:57
PROVIDERS: ADMIT Internal Medicine; ATTEND Internal Medicine
PROC: 3E0F7GC Introduction of Other Therapeutic Substance into Respiratory Tract, Via Natural or Artificial Opening (ICD-10-PCS; principal; 2023-07-20)
PROC: 3E03329 Introduction of Other Anti-infective into Peripheral Vein, Percutaneous Approach (ICD-10-PCS; 2023-07-20)
PROC: 3E033GC Introduction of Other Therapeutic Substance into Peripheral Vein, Percutaneous Approach (ICD-10-PCS; 2023-07-20)
PROC: 3E013VG Introduction of Insulin into Subcutaneous Tissue, Percutaneous Approach (ICD-10-PCS; 2023-07-20)
PROC: 3E033VG Introduction of Insulin into Peripheral Vein, Percutaneous Approach (ICD-10-PCS; 2023-07-20)
PROC: 3E0337Z Introduction of Electrolytic and Water Balance Substance into Peripheral Vein, Percutaneous Approach (ICD-10-PCS; 2023-07-20)
DX: J20.9 Acute bronchitis, unspecified (principal); E87.1 Hypo-osmolality and hyponatremia; E11.9 Type 2 diabetes mellitus without complications; I10 Essential (primary) hypertension; E78.5 Hyperlipidemia, unspecified; E87.6 Hypokalemia; Z91.018 Allergy to other foods
CPT/HCPCS: 0241U-QW; 36415; 71045-TC-FY; 71250-TC; 80048; 80053; 81003; 82550; 82962; 83605; 83735; 83880; 84100; 84484; 85025; 85027; 87040; 87086; 93005; 93306-TC; 94640; 96361; 96365; 96367; 96372; 96375; 97116-GP; 97161-GP; 99285-25; G0378